=== PATIENT | male | born 1980 | race Caucasian/White ===

== ENCOUNTER 2023-10-29 15:55 | Outpatient (CLI) | payer OTHER, SELFPAY ==
[2023-11-01 13:34] LABS: Anti-Double Strand DNA AB <1 IU/mL; Jo-1 Antibody <1.0 NEG AI (<1.0 NEG); SS-B/LA IGG <1.0 NEG AI (<1.0 NEG); Scleroderma Ab(Scl-70) Ab <1.0 NEG AI (<1.0 NEG); Ss-A/Ro Igg <1.0 NEG AI (<1.0 NEG)
[2023-11-07 15:02] LABS: SM/RNP Antibodies <1.0 NEG
== END 2023-10-29 15:56 | disposition home or self-care (01) ==
LOC: LAB 15:58
PROVIDERS: PCP Nurse Practitioner Family; Visit Provider Nurse Practitioner Family
DX: K11.7 Disturbances of salivary secretion (principal)
CPT/HCPCS: 11104; 36415; 72141; 86225; 86235; 99204

== ENCOUNTER → 2023-12-03 11:19 | Outpatient (BNVA) | payer OTHER, SELFPAY | PROVIDERS: PCP Nurse Practitioner Family; Visit Provider Nurse Practitioner Family | DX: B35.3 Tinea pedis (principal); L57.8 Other skin changes due to chronic exposure to nonionizing radiation; L81.4 Other melanin hyperpigmentation; G62.9 Polyneuropathy, unspecified; M25.50 Pain in unspecified joint | CPT/HCPCS: 99214 ==

== ENCOUNTER → 2024-04-01 11:15 | Outpatient (BNVA) | payer OTHER, SELFPAY | PROVIDERS: PCP Nurse Practitioner Family; Visit Provider Nurse Practitioner Family | DX: B35.3 Tinea pedis (principal); L57.8 Other skin changes due to chronic exposure to nonionizing radiation; L81.4 Other melanin hyperpigmentation | CPT/HCPCS: 99213 ==

== ENCOUNTER → 2025-03-03 18:35 | Outpatient (BNVA) | payer MEDICAID, SELFPAY | PROVIDERS: PCP Nurse Practitioner Family; Visit Provider Emergency Medicine | DX: R06.02 Shortness of breath (principal) | CPT/HCPCS: 87426 ==

== ENCOUNTER 2025-03-07 18:03 | Inpatient (IN) | payer MEDICAID, SELFPAY ==
[2025-03-07 18:05] VITALS: BP 154/70; PULSE 124; RESP 16; TEMP 36.9; O2SAT 97; BMI 25.0
--- NOTE | 2025-03-07 18:21 | ECG_ITS ---
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 Measurements Intervals Elizabeth Rate: 122 P: 74 MS: 156 QRS: 75 QRSD: 98 T: 60 QT: 350 QTc: 499 Interpretive Statements SINUS TACHYCARDIA NONSPECIFIC T-WAVE ABNORMALITY No previous ECG available for comparison Electronically Signed On 03-08-2025 08:55:42 CDT by Morgan Carvalho M.D. [id number]
--- NOTE | 2025-03-07 18:33 | CTR_ITS ---
PROCEDURE INFORMATION: Exam: CTA Chest With Contrast Exam date and time: 03/07/2025 6:44 PM Age: 44 years old Clinical indication: Shortness of breath; C/O worsening SOB over the last week despite abx and steroid treatment. ; Additional info: Concern for pe TECHNIQUE: Imaging protocol: Computed tomographic angiography of the chest with contrast. Exam focused on the arteries. 3D rendering (Not supervised by radiologist): MIP and/or 3D reconstructed images were created by the technologist. Radiation optimization: All CT scans at this facility use at least one of these dose optimization techniques: automated exposure control; mA and/or kV adjustment per patient size (includes targeted exams where dose is matched to clinical indication); or iterative reconstruction. Contrast material: OMNI 350; Contrast volume: 100 ml; Contrast route: INTRAVENOUS (IV); COMPARISON: MR cervical spin wo con* [id number] 10/29/2023 1:18 PM RADIATION DOSE METRICS: Total DLP (mGy-cm): 422.18 FINDINGS: Pulmonary arteries: No evidence of pulmonary thromboembolism. Aorta: No evidence of aneurysmal dilatation or dissection of the thoracic aorta. Thyroid: Grossly unremarkable. Lungs: No focal consolidation. No evidence of pneumonia. Pleural spaces: No evidence of pleural effusion. No pneumothorax. Heart: No cardiomegaly. No pericardial effusion. Mediastinal space: No evidence of mediastinal mass, fluid collection or hematoma. Lymph nodes: No mediastinal or hilar adenopathy. Bones/joints: No evidence of acute fracture or aggressive osseous lesion. Soft tissues: No evidence of fluid collection or hematoma in the superficial soft tissues. Other findings: No evidence of acute abnormality in the upper abdomen. CT/CT angio chest PE protcl [id number] IMPRESSION: 1. No evidence of PE or acute aortic abnormality.
--- NOTE | 2025-03-07 18:33 | XRR_ITS ---
PROCEDURE INFORMATION: Exam: XR Chest Exam date and time: 03/07/2025 6:53 PM Age: 44 years old Clinical indication: Shortness of breath; Additional info: SOB TECHNIQUE: Imaging protocol: Radiologic exam of the chest. Views: 1 view. COMPARISON: CT angio chest PE protcl [id number] 03/07/2025 6:44 PM FINDINGS: Lungs: No focal consolidation. Pleural spaces: No evidence of pneumothorax. No evidence of pleural effusion. Heart/Mediastinum: Cardiomediastinal silhouette is within normal limits. Bones/joints: No evidence of acute osseous abnormality. XR/XR chest 1V portable [id number] IMPRESSION: 1. No acute cardiopulmonary abnormality.
--- NOTE | 2025-03-07 18:35 | ED_ITS ---
HPI - SOB/Dyspnea 2 General: Chief Complaint: Shortness of Breath/Dyspnea Stated Complaint: sob, shakes, dizy, confusion Time Seen by Provider: 03/07/25 18:14 History of Present Illness: HPI Narrative: Patient comes in with shortness of breath. 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 States that over the past couple of days he has had bodyaches, sore throat, fatigue. States that he thought he might have COVID. Was seen in urgent care 4 days ago and tested negative for COVID. States he started him on doxycycline, steroids, and albuterol which he has been using as prescribed with no change. Patient denies any medical history. States he does smoke but does not drink or do any drugs. Denies any history of asthma. He denies chest pain, but does state that a week or so ago he had a knot in his stomach that has gone away since then. Denies any heart history. He is tachycardic on physical exam. His oxygen saturations are 99% on room air. Will check labs, EKG, give IV fluids, check chest x-ray, check CTA chest to rule out PE, and reassess. Associated symptoms: Deny abdominal pain, chest pain, nausea or vomiting Related Data Previous Rx's ?Medication ?Instructions ?Recorded albuterol sulfate 90 mcg/actuation 2 puff inhalation Q 6H PRN 03/03/25 aerosol inhaler shortness of breath or wheez ing #8.5 grams dexamethasone 2 mg tablet 6 mg (3 x 2 mg) PO DAILY 5 d ays 03/03/25 #15 tabs doxycycline hyclate 100 mg tablet 100 mg PO BID 7 days #14 tabs 03/03/25 Allergies Allergy/AdvReac Type Severity Reaction Status Date / Time No Known Allergies Allergy Unverified 03/03/25 18:27 Review of Systems 2 Eyes: Denies: change in vision or blurry vision Card: Denies: chest pain Resp: Reports: dyspnea GI: Denies: abdominal pain, nausea or vomiting : Denies: flank pain or dysuria Musc: Denies: neck pain or back pain PFSH ED 2 PFSH: Social History Smoking and tobacco/nicotine status: never used tobacco/nicotine Physical Exam 2 Const: COMMON NORMALS: no acute distress, patient oriented x3, healthy appearing and alert HENMT: COMMON NORMALS: normocephalic and atraumatic HEAD & SCALP: n ormocephalic and atraumatic Neck/C-Spine: COMMON NORMALS: full ROM and supple Resp: COMMON NORMALS: normal respiratory effort, No retractions and No use of accessory muscles Cardio: OTHER: Tachycardia, normal rhythm GI: COMMON NORMALS: Normal to inspection, nondistended, normoactive bowel sounds present, Soft to palpation and non-tender PALPATION: Yes Soft to palpation Extremity: COMMON NORMALS: normal to inspection and full ROM Neuro: COMMON NORMALS: patient oriented x3 SENSORIUM/ORIENTATION: Yes alert Psych: COMMON NORMALS: mental status grossly normal and cooperative Course 2 Vital Signs: Vital signs: Vital Signs Temperature 98.5 F 03/07/25 18:05 Pulse Rate 102 H 03/07/25 19:07 Respiratory Rate 16 03/07/25 18:05 Blood Pressure 147/78 03/07/25 19:07 Pulse Oximetry 96 03/07/25 19:07 Oxygen Delivery Me thod Room Air 03/07/25 19:07 MDM - SOB/Dyspnea Medical Decision Making Patient's white blood cell count came back elevated at 17. I am concerned for sepsis. X 0 for sepsis would be 7:30 PM. Will start broad-spectrum antibiotics with vancomycin and Zosyn, and continue IV fluid resuscitation for a total of 30 cc/kg bolus. Reassessment I spoke with the hospitalist and the patient about the test results. I am concerned for sepsis. Will continue IV fluids and antibiotics. Will admit for further workup and treatment. Lab Data 03/07/25 18:50 03/07/25 18:50 Labs/Radiology: Radiology Impressions Chest CTA 03/07/25 18:33 IMPRESSION: 1. No evidence of PE or acute aortic abnormality. Chest X-Ray 03/07/25 18:33 IMPRESSION: 1. No acute cardiopulmonary abnormality. Laboratory Results WBC 17.35 10^3/uL (3.29-11.43) H 03/07/25 18:50 RBC 4.66 10^6/uL (3.85-5.65) 03/07/25 18:50 Hgb 14.40 g/dL (11.27-16.99) 03/07/25 18:50 Hct 43.3 % (37-53) 03/07/25 18:50 MCV 92.9 fl (82-101) 03/07/25 18:50 MCH 30.9 pg (27-33) 03/07/25 18:50 MCHC 33.3 g/dL (30-55) 03/07/25 18:50 RDW 12.6 % (12.1-15.1) 03/07/25 18:50 Plt Count 301 10^3/cmm (157-399) 03/07/25 18:50 MPV 8.7 fL (7.4-10.4) 03/07/25 18:50 Neut % (Auto) 88.6 % 03/07/25 18:50 Lymph % (Auto) 8.1 % 03/07/25 18:50 [place] % (Auto) 2.3 % 03/07/25 18:50 Eos % (Auto) 0.0 % 03/07/25 18:50 Baso % (Auto) 0.2 % 03/07/25 18:50 Neut # (Auto) 15.36 10^3/uL (1.8-7.7) H 03/07/25 18:50 Lymph # (Auto) 1.4 10^3/uL (0.8-4.8) 03/07/25 18:50 [place] # (Auto) 0.4 10^3/uL (0.2-0.9) 03/07/25 18:50 Eos # (Auto) 0.0 10^3/uL (0.0-0.8) 03/07/25 18:50 Baso # (Auto) 0.0 10^3/uL (0.0-0.1) 03/07/25 18:50 Nucleated RBC % (auto) 0 % 03/07/25 18:50 Nucleated RBCs # 0.0 /100WBC 03/07/25 18:50 Sodium 139 mmol/L (136-145) 03/07/25 18:50 Potassium 4.2 mmol/L (3.5-5.1) 03/07/25 18:50 Chloride 102 mmol/L (98-107) 03/07/25 18:50 Carbon Dioxide 23 mmol/L (22-29) 03/07/25 18:50 Anion Gap 18.2 (5-19) 03/07/25 18:50 BUN 8 mg/dL (6-20) 03/07/25 18:50 Creatinine 0.7 mg/dL (0.7-1.2) 03/07/25 18:50 GFR Calculation 123.1 mL/min (90-130) 03/07/25 18:50 Glucose 181 mg/dL (65-115) H 03/07/25 18:50 Calculated Osmolality 291 mOsm/kg (285-295) 03/07/25 18:50 Lactic Acid 3.0 mmol/L (0.5-2.2) H 03/07/25 18:50 Calcium 8.9 mg/dL (8.5-10.5) 03/07/25 18:50 Total Bilirubin 0.2 mg/dL (0.15-1.2) 03/07/25 18:50 AST 9 U/L (0-40) 03/07/25 18:50 ALT 11 U/L (0-41) 03/07/25 18:50 Alkaline Phosphatase 99 U/L (40-130) 03/07/25 18:50 Troponin T Baseline < 6 ng/L (0-15) 03/07/25 18:50 Troponin T 120 Minute < 6.0 ng/L (0-15) 03/07/25 12:47 NT-Pro-B Natriuret Pep < 36 pg/mL (0-125) 03/07/25 18:50 Total Protein 6.7 g/dL (6.6-8.7) 03/07/25 18:50 Albumin 4.6 g/dL (3.5-5.2) 03/07/25 18:50 Globulin 2.1 g/dL (1.3-4.6) 03/07/25 18:50 Lipase 39 U/L (13-60) 03/07/25 18:50 Amorphous Sediment Not Reportable 03/07/25 20:00 Monoscreen Negative (Negative) 03/07/25 19:44 Influenza A (PCR) Negative (Negative) 03/07/25 19:00 Influenza Type B (PCR) Negative (Negative) 03/07/25 19:00 RSV (PCR) Negative (Negative) 03/07/25 19:00 SARS-CoV-2 (PCR) Negative (Negative) 03/07/25 19:00 All radiology interpretation(s) finalized by discharge Critical Care Time 2 Critical Care Time: Critical Care Time: Yes Total Critical Care Time: 35 Attestation: This case had a high probability of a clinically significant, sudden, or life threatening deterioration of this patient's condition which required my full and direct attention, intervention and personal management. 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
[2025-03-07] MEDS: iohexol 350 mg/mL 500 mL Btl (per mL) IV (18:50)
[2025-03-07] MEDS: sodium chloride 0.9% 1,000 ML 999 ML IV ×3 (19:06→21:07)
[2025-03-07 19:07] VITALS: BP 147/78; PULSE 102; O2SAT 96
[2025-03-07 19:14] LABS: Basophils % 0.2 %; Hematocrit 43.3 % (37-53); Lymphocytes # 1.4 10^3/uL (0.8-4.8); Lymphocytes % 8.1 %; Mean Corpuscular HGB Conc 33.3 g/dL (30-55); Mean Corpuscular Hemoglobin 30.9 pg (27-33); Mean Corpuscular Volume 92.9 fl (82-101); Mean Platelet Volume 8.7 fL (7.4-10.4); Monocytes # 0.4 10^3/uL (0.2-0.9); Monocytes % 2.3 %; Neutrophils # 15.36 10^3/uL (1.8-7.7); Neutrophils % 88.6 %; Nucleated Red Blood Cells % 0 %; Platelet Count 301 10^3/cmm (157-399); Red Blood Count 4.66 10^6/uL (3.85-5.65); Red Cell Distribution Width 12.6 % (12.1-15.1); White Blood Count 17.35 10^3/uL (3.29-11.43)
[2025-03-07 19:36] LABS: Troponin(5th) Baseline < 6 ng/L (0-15)
[2025-03-07 19:46] LABS: Alanine Aminotransferase 11 U/L (0-41); Albumin Level 4.6 g/dL (3.5-5.2); Alkaline Phosphatase 99 U/L (40-130); Anion Gap 18.2 (5-19); Aspartate Amino Transferase 9 U/L (0-40); Blood Urea Nitrogen 8 mg/dL (6-20); Calcium 8.9 mg/dL (8.5-10.5); Carbon Dioxide 23 mmol/L (22-29); Chloride 102 mmol/L (98-107); Creatinine Clr Calc Pharmacy 167.4158; Globulin 2.1 g/dL (1.3-4.6); Glomerular Filtration Rate 123.1 mL/min (90-130); Glucose 181 mg/dL (65-115); Lipase 39 U/L (13-60); NT Pro B Type Natriuretic Pept < 36 pg/mL (0-125); Osmolality Calculated 291 mOsm/kg (285-295); Potassium 4.2 mmol/L (3.5-5.1); Sodium 139 mmol/L (136-145); Total Bilirubin 0.2 mg/dL (0.15-1.2); Total Protein 6.7 g/dL (6.6-8.7)
[2025-03-07 20:00] VITALS: BP 127/69; PULSE 86; RESP 17; O2SAT 94
[2025-03-07 20:01] LABS: Influenza A NEGATIVE (Negative); Influenza B NEGATIVE (Negative); Respiratory Syncytial Virus Ce NEGATIVE (Negative); SARS-CoV-2 PCR NEGATIVE (Negative)
[2025-03-07 20:03] LABS: Monoscreen Negative (Negative)
[2025-03-07] MEDS: piperacillin-tazobactam 3.375 GM in sodium chloride 0.9% (plus) 50 ML IV (20:07)
[2025-03-07] MEDS: SODIUM CHLORIDE 0.9% IV (20:34)
[2025-03-07] MEDS: VANCOMYCIN ADD VANTAGE IV (20:34)
[2025-03-07 20:52] LABS: Reflex Lactate Order REFLEX LACTIC ORDERD
[2025-03-07 21:00] VITALS: BP 132/75; PULSE 82; RESP 22; O2SAT 94
[2025-03-07 21:06] LABS: Bilirubin Urine Negative (Negative); Blood Urine Negative (Negative); Glucose Urine UA Negative (Normal); Ketones Urine Negative (Negative); Leukocyte Esterase Urine Negative (Negative); Nitrate Urine Negative (Negative); Protein Urine Negative (Negative); Urine Appearance Clear (CLEAR); Urine Color Yellow (Yellow); Urobilinogen Urine 0.2 mg/dL (Negative); pH Urine 5.5 (5-7)
[2025-03-07 21:08] LABS: Troponin 5 2HR < 6.0 ng/L (0-15)
[2025-03-07 21:11] LABS: Add Urine Microscopic? YES; Bacteria Urine None Seen /hpf; Hyaline Casts Urine 0-4 /lpf; RBC Urine 0-2 /hpf (0-2); Squamous Epithelial Cell Urine 0-5 /hpf (0-5); WBC Urine 0-5 /hpf (0-5)
[2025-03-07 21:18] LABS: Specific Gravity, Urine 1.064 (1.005-1.030)
[2025-03-07 21:55] LABS: Troponin 5 2HR Delta 0 ABS# (0-10)
--- NOTE | 2025-03-07 22:34 | PM.HP ---
Providers/Chief Complaint Admitting Physician: Sofia Li MD--- patient seen in [facility] midnight Primary Care Provider: ESTHER Nolna Chief Complaint: sob, shakes, dizzy, confusion, polyarthralgia, OWEN History of Present Illness Rayo Gayle is a 44 year old male with no significant medical history who presented with a history of having headaches rigors chills with arthralgias to the joints on Saturday being 4 days from today. Patient at that time went to urgent care and read the history given to the urgent care about tick related bites taken off from the skin by the , urgent care had written doxycycline give him some inhaler because he was also having shortness of breath with the rigors. Patient was not feeling any better for that reason patient came to the emergency room for further evaluation. This patient is presenting septic white count elevation though had a prior low-dose steroid 6 mg prednisone daily, he also mentioned headaches and arthritis to the joints and rigors and some confusion that with temporary or transitory. This had given suspicion of some disseminated process going on likely tick illness. Patient walks in the wound and does not get in touch with takes and a lot of time the will go through his skin to make sure there is none on his body. Prior to the illness the had taken off take off of him. Today in the emergency room white count was at 17,000 lactate was 3 patient was tachycardic at 130. Patient received dose of fluid and responded to heart rate coming down to 102. He was afebrile in the emergency room. He was given vancomycin and Zosyn in the emergency room. I was called to evaluate patient. I have seen and evaluated patient asked questions as per above as narrated. The [place] is headache arthralgias rigors and being feverish presenting septic with a high index of suspicion for a disseminated illness perhaps tick borne illness. Because of the dissemination I have initiated ceftriaxone high-dose still leave the Doxy till tick panel comes back. Must continue to treat and monitor. Will continue gentle hydration at this time. Patient meets inpatient criteria allowing at least 2 midnights stay. Review of Systems Narrative: System review open 10 organ review is significant for systemic illness with rigors leukocytosis tachycardia arthralgias and headaches significant for some form of microorganism dissemination otherwise unremarkable. Medications/Allergies Home Medications ?Medication ?Instructions ?Recorded ?Confirmed ?Last Taken ?Type albuterol sulfate 90 mcg/actuation 2 puff inhalation Q6H PRN 03/03/25 03/03/25 Unknown Rx aerosol inhaler shortness of breath or wheezing #8.5 grams dexamethasone 2 mg tablet 6 mg (3 x 2 mg) PO DAILY 5 days 03/03/25 03/03/25 Unknown Rx #15 tabs doxycycline hyclate 100 mg tablet 100 mg PO BID 7 days #14 tabs 03/03/25 03/03/25 Unknown Rx Allergies Allergy/AdvReac Type Severity Reaction Status Date / Time No Known Allergies Allergy Unverified 03/03/25 18:27 PFSH Acute PFSH: Social History Smoking and tobacco/nicotine status: never used tobacco/nicotine Vitals/I&O/Wt Last Vital Signs Temp 98.5 F 03/07/25 18:05 Pulse 102 H 03/07/25 19:07 Resp 16 03/07/25 18:05 BP 147/78 03/07/25 19:07 Pulse Ox 96 03/07/25 19:07 O2 Del Method Room Air 03/07/25 19:07 03/07/25 03/07/25 03/07/25 06:59 14:59 22:59 Intake Total 1998 Balance 1998 Weight last 48 hrs Weight 90.718 kg Physical Exam Narrative: Generally patient eats doing fairly well slightly improved than at presentation. Patient felt that getting the fluid help. HEENT normocephalic/atraumatic neck neck is supple cardiovascular heart rate is regular lungs are pretty much clear abdomen soft nontender nondistended unremarkable extremities intact no edema has good pulses neurology he has no focality lab studies lab studies reviewed and noted. Data 03/08/25 03:35 03/08/25 03:35 Micro: Microbiology 03/07/25 19:07 Blood Culture - Preliminary Blood SPECIMEN COLLECTED 03/07/25 19:00 Blood Culture - Preliminary Blood SPECIMEN COLLECTED A&P Assessment and plan (1) Sepsis: - Patient was septic presenting with - Leukocytosis - Increase respiratory rate - Increased pulse rate in the 130s, responded to fluid - Much better with antibiotics initiated - Patient received vancomycin and Zosyn in the emergency room I did not continue with that we will further follow-up with doxycycline and ceftriaxone. (2) At high risk for tick borne illness: Continue gentle hydration, Continue antibiotics with ceftriaxone Continue with doxycycline at the moment till panel comes out. Ceftriaxone is good for the disseminated tick illness (3) Arthralgia of ankle or foot, left: Arthralgia a very high index of suspicion for a disseminated takes disease Continue ceftriaxone and have doxycycline also on board till the results of the tick panel comes out Did not order a leak here because patient LFTs are all entirely normal. (4) Generalized headaches: Generalized headache again parts of the multi symptoms of disseminated tick illness Continue to treat mainstay is ceftriaxone we will continue with doxycycline till result comes out for the tick panel (5) Rigors: - Rigors due to disseminated spirochetes - Continue ceftriaxone high-dose as ordered - Will continue to treat and optimize (6) Shortness of breath: Shortness of breath with rigors - Patient had no pulmonary processes, chest x-ray and CT of the chest with unremarkable for any pneumonia and PE - Continue nebulizing treatments at this time. - Empiric antibiotics with doxycycline along with ceftriaxone for disseminated tick related borne illness while pending tick panel. (7) Cough: - Cough is mild as part of multi organ infection TICK related illness - Nebulizing treatments Plan GI and DVT prophylaxis in place PDMP PDMP Reviewed: Last Reviewed 03/08/25 06:31 by Sofia Li MD Attestations Medical Necessity Statement*: Patient meets inpatient criteria for what looks like disseminated tick borne illness and will be needing a minimum of 2 midnights Coding Level of Care Code 08285 Diagnoses Sepsis A41.9 At high risk for tick borne illness Z91.89 Arthralgia of ankle or foot, left M25.572 Generalized headaches R51.9 Rigors R68.89 Shortness of breath R06.02 Cough R05.9 Time Spent (min) 60
[2025-03-07 23:00] VITALS: BP 132/69; PULSE 80; RESP 14; TEMP 36.7; O2SAT 93
[2025-03-07 23:36] VITALS: PULSE 91; RESP 18; O2SAT 94
[2025-03-07] MEDS: cefTRIAXone 2,000 mg SDV 2000 MG IVP (23:44)
[2025-03-07] MEDS: sodium chloride 0.9% 1,000 ML 75 ML IV (23:45)
[2025-03-07] MEDS: nicotine 21 mg Patch 1 PATCH TRANSDERMA (23:47)
[2025-03-07] MEDS: doxycycline 100 MG in sodium chloride 0.9% (plus) 100 ML IV (23:55)
[2025-03-08] VITALS (12 sets, daily range): BP systolic 115–146; BP diastolic 61–92; PULSE 59–94; RESP 14–22; TEMP 36.6–37.1; O2SAT 93–98
[2025-03-08 00:01] LABS: Lactic Acid level (Lactate) 1.3 mmol/L (0.5-2.2)
--- NOTE | 2025-03-08 03:42 | PC.NURSE ---
pt awoken via verbal stimuli and morning labs drawn. pt denies question/concerns at this time. pt in no obivous distress. pt resting comfortably listening to music . pt on configuration specialist. VSS>
[2025-03-08 03:43] LABS: Basophils % 0.2 %; Lymphocytes # 2.6 10^3/uL (0.8-4.8); Lymphocytes % 17.8 %; Mean Corpuscular HGB Conc 32.6 g/dL (30-55); Mean Corpuscular Volume 95.1 fl (82-101); Mean Platelet Volume 8.5 fL (7.4-10.4); Monocytes # 1.2 10^3/uL (0.2-0.9); Monocytes % 7.8 %; Neutrophils # 10.77 10^3/uL (1.8-7.7); Neutrophils % 73.5 %; Nucleated Red Blood Cells % 0 %; Platelet Count 234 10^3/cmm (157-399); Red Cell Distribution Width 12.6 % (12.1-15.1); White Blood Count 14.66 10^3/uL (3.29-11.43)
[2025-03-08 04:04] LABS: Alanine Aminotransferase 8 U/L (0-41); Albumin Level 3.6 g/dL (3.5-5.2); Alkaline Phosphatase 86 U/L (40-130); Anion Gap 13.2 (5-19); Aspartate Amino Transferase 7 U/L (0-40); Blood Urea Nitrogen 7 mg/dL (6-20); Calcium 8.2 mg/dL (8.5-10.5); Carbon Dioxide 23 mmol/L (22-29); Chloride 105 mmol/L (98-107); Creatinine Clr Calc Pharmacy 195.3185; Globulin 1.9 g/dL (1.3-4.6); Glucose 99 mg/dL (65-115); Lactic Sepsis W/Reflex 1.1 mmol/L (0.5-2.2); Magnesium 1.7 mg/dL (1.7-2.3); Osmolality Calculated 282 mOsm/kg (285-295); Phosphorus 4.4 mg/dL (2.5-4.5); Potassium 4.2 mmol/L (3.5-5.1); Sodium 137 mmol/L (136-145); Total Bilirubin 0.2 mg/dL (0.15-1.2); Total Protein 5.5 g/dL (6.6-8.7)
[2025-03-08 04:11] LABS: Procalcitonin 0.03 ng/mL (0-0.5)
--- NOTE | 2025-03-08 06:09 | PC.NURSE ---
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 answered said call light and patient requesting to use restroom. pts urinal emptied approx 1300 clear, yellow urine and new urinal given to patient. pt denies further questions/concerns at this time.
[2025-03-08] MEDS: pantoprazole DR 40 mg Tablet PO (09:06)
[2025-03-08] MEDS: enoxaparin 40 mg/0.4 mL Syringe SUBCUT (09:06)
--- NOTE | 2025-03-08 09:15 | PC.CHAP ---
Pastoral Care Encounter/Spiritual Assessment Type of Contact [] Declined in home tutor visit [] Patient/Family/Request visit [] Outpatient visit [] Follow-up visit [] Physician referral [] Code/Alert [x] Routine visit [] Staff referral [] Actively dying [] Patient sleeping [] Family support [] [] Out of room [] Palliative care [] [] Receiving care in room [] Pre-surgical visit [] Trauma [] Long length of stay [] ICU visit [] Other: Relational/Emotional Strength [] Patient feels connected with others/family/visitors/staff [] Distress [] Loneliness/isolation [] Abandonment Spirituality of Patient [x] Person of Debbi [] Attends Presybeterian of their Debbi [x] Believes in Prayer [] Reads Bible or Evangelical materials [] There are Spiritual issues to be addressed 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 Interventions [x] Prayer [x] Active listening [] Non-anxious presence [] Spiritual/emotional support [] Crisis/trauma care [] Spiritual counseling [] Bereavement support [] Provided bereavement packet [x] Provided Bible/devotional materials [] Provided toy/stuffed animal, coloring book to patient or family member [] Provided Communion [] Anointing/[place] [] Salvation [x] Completed spiritual assessment [] Other: Impact on Illness or Injury [] Angry [] Fearful [] Anxious [] Often cries [] Exhaustion [] Unable to work [] Unable to attend episcopal [] Unable to walk/stand [] Unable to read [] Unable to drive [] Unable to eat/drink [] Unable to sleep [] Unable to be with family [] Patient intubated [] Other: Summary Time spent with patient 10 min
[2025-03-08] MEDS: doxycycline 100 MG in sodium chloride 0.9% (plus) 100 ML IV (11:58)
[2025-03-08] MEDS: cefTRIAXone 2,000 mg SDV 2000 MG IVP ×2 (11:59→23:39)
--- NOTE | 2025-03-08 14:03 | P.PN_ITS ---
Subjective 2 Subjective: Last Saturday patient suffered chills shakes shortness of breath like breathing fever cough. Patient was seen in urgent care placed on doxycycline because of reported tick bites. He did not get any better and was having further shaking episodes as well as some confusion of concern. He was found to have elevated white blood cell count and placed on broad-spectrum antibiotics. Workup for infection is negative. Blood cultures pending Patient states he feels much better today is with him and also agrees that he is doing much better Vitals/I&O/Wt Last Vital Signs Temp 98.0 F 03/08/25 11:15 Pulse 91 03/08/25 11:15 Resp 16 03/08/25 11:15 BP 122/82 03/08/25 11:15 Pulse Ox 97 03/08/25 11:15 O2 Del Method Room Air 03/08/25 11:15 03/07/25 03/08/25 03/08/25 22:59 06:59 14:59 Intake Total 3499 / 3499 150 / 3649 240 / 240 Output Total 1300 / 1300 Balance 3499 / 3499 -1150 / 2349 240 / 240 Weight last 48 hrs Weight 90.718 kg Physical Exam 2 Narrative: Patient is alert and oriented to person place time and situation not confused Heart regular normal S1-S2 without murmurs clicks gallops or rubs Lungs clear to auscultation slightly diminished but clear Abdomen soft nontender nondistended positive bowel sounds no hepatosplenomegaly Extremities no clubbing cyanosis or edema Data 03/08/25 03:35 03/08/25 03:35 Micro: Microbiology 03/07/25 19:07 Blood Culture - Preliminary Blood SPECIMEN COLLECTED 03/07/25 19:00 Blood Culture - Preliminary Blood SPECIMEN COLLECTED A&P Assessment and plan (1) Sepsis: - Patient was septic presenting with - Leukocytosis - Increase respiratory rate - Increased pulse rate in the 130s, responded to fluid - Much better with antibiotics initiated - Patient received vancomycin and Zosyn in the emergency room overnight physician continue doxycycline and added ceftriaxone instead (2) At high risk for tick borne illness: Continue gentle hydration, Continue antibiotics with ceftriaxone Continue with doxycycline at the moment till panel comes out. Ceftriaxone is good for the disseminated tick illness per admitting physician (3) Arthralgia of ankle or foot, left: Arthralgia a very high index of suspicion for a disseminated tick disease Continue ceftriaxone and have doxycycline also on board till the results of the tick panel comes out No complaint of arthralgia to me today (4) Generalized headaches: Generalized headache again parts of the multi symptoms of disseminated tick illness Continue to treat mainstay is ceftriaxone we will continue with doxycycline till result comes out for the tick panel (5) Rigors: - Continue ceftriaxone high-dose as ordered - Will continue to treat and optimize (6) Shortness of breath: Shortness of breath with rigors - Patient had no pulmonary processes, chest x-ray and CT of the chest with unremarkable for any pneumonia and PE - Continue nebulizing treatments at this time. - Empiric antibiotics with doxycycline along with ceftriaxone for disseminated tick related borne illness while pending tick panel. (7) Cough: - Cough is mild as part of multi organ infection TICK related illness - Nebulizing treatments Plan GI and DVT prophylaxis in place Await blood cultures and follow-up CBC tomorrow PDMP PDMP Reviewed: Not Reviewed Attestations 2 Medical Necessity Statement*: Patient meets inpatient criteria for what looks like disseminated tick borne illness and will be needing a minimum of 2 midnights Coding Level of Care Code Acute Code for Chg Fwd Diagnoses Sepsis without acute organ dysfunction, due to unspecified organism A41.9 Sepsis type: sepsis due to unspecified organism Sepsis acute organ dysfunction status: without acute organ dysfunction At high risk for tick borne illness Z91.89 Arthralgia of ankle or foot, left M25.572 Generalized headaches R51.9 Rigors R68.89 Shortness of breath R06.02 Cough R05.9
[2025-03-08] MEDS: doxycycline 100 mg Tablet PO (17:57)
[2025-03-08] MEDS: sodium chloride 0.9% 1,000 ML 75 ML IV (17:58)
[2025-03-08] MEDS: acetaminophen 325 mg Tablet 650 MG PO (22:18)
[2025-03-09] VITALS: BP 127/80; PULSE 75; RESP 17; TEMP 36.7; O2SAT 96
[2025-03-09] MEDS: nicotine 21 mg Patch 1 PATCH TRANSDERMA
[2025-03-09 05:22] LABS: Basophils # 0.1 10^3/uL (0.0-0.1); Basophils % 0.7 %; Eosinophils # 0.1 10^3/uL (0.0-0.8); Eosinophils % 1.2 %; Hematocrit 40.1 % (37-53); Lymphocytes # 4.6 10^3/uL (0.8-4.8); Lymphocytes % 41.8 %; Mean Corpuscular HGB Conc 33.2 g/dL (30-55); Mean Corpuscular Hemoglobin 30.8 pg (27-33); Mean Corpuscular Volume 92.8 fl (82-101); Mean Platelet Volume 8.3 fL (7.4-10.4); Monocytes # 0.9 10^3/uL (0.2-0.9); Monocytes % 8.4 %; Neutrophils # 5.21 10^3/uL (1.8-7.7); Neutrophils % 47.5 %; Nucleated Red Blood Cells % 0 %; Platelet Count 228 10^3/cmm (157-399); Red Blood Count 4.32 10^6/uL (3.85-5.65); Red Cell Distribution Width 12.6 % (12.1-15.1); White Blood Count 10.96 10^3/uL (3.29-11.43)
[2025-03-09 05:42] LABS: Anion Gap 15.1 (5-19); Blood Urea Nitrogen 10 mg/dL (6-20); Calcium 8.4 mg/dL (8.5-10.5); Carbon Dioxide 24 mmol/L (22-29); Chloride 108 mmol/L (98-107); Creatinine Clr Calc Pharmacy 167.4158; Glomerular Filtration Rate 123.1 mL/min (90-130); Glucose 84 mg/dL (65-115); Osmolality Calculated 294 mOsm/kg (285-295); Potassium 4.1 mmol/L (3.5-5.1); Sodium 143 mmol/L (136-145)
[2025-03-09 07:50] VITALS: BP 109/62; PULSE 99; RESP 15; TEMP 37.3; O2SAT 96
[2025-03-09] MEDS: enoxaparin 40 mg/0.4 mL Syringe SUBCUT (08:03)
[2025-03-09] MEDS: doxycycline 100 mg Tablet PO (08:03)
[2025-03-09 09:35] VITALS: PULSE 74; RESP 18; O2SAT 97
[2025-03-09 11:40] VITALS: BP 146/81; PULSE 103; RESP 15; TEMP 36.8; O2SAT 97
[2025-03-09] MEDS: cefTRIAXone 2,000 mg SDV 2000 MG IVP (11:40)
--- NOTE | 2025-03-09 11:58 | PM.DCS ---
Discharge Providers Date of Admission: 03/07/25 21:13 Date of Discharge: March 09, 2025 Attending Provider at Admission: Sofia Li MD Attending Provider at Discharge: Reynold Smalls DO Consults: None Primary Care Provider: ESTHER Nolan Diagnoses at Discharge Discharge Diagnosis (1) Sepsis: Status: Acute Qualifiers: Sepsis acute organ dysfunction status: without acute organ dysfunction Sepsis type: sepsis due to unspecified organism Qualified Code(s): A41.9 - Sepsis, unspecified organism (2) At high risk for tick borne illness: Status: Acute (3) Arthralgia of ankle or foot, left: Status: Acute (4) Generalized headaches: Status: Acute (5) Rigors: Status: Acute (6) Shortness of breath: Status: Acute (7) Cough: Status: Acute Reason for Visit Reason for Visit: sob, shakes, dizzy, confusion, polyarthralgia, OWEN Brief History: Patient had been treated for 5 days for tick borne illness with doxycycline. However he continued to worsen. He had shakes and confusion and shortness of breath that prompted his admission through the ER. He did have an elevated white count and the lactate was 3. He was tachycardic and had an elevated respiratory rate. He appeared to be in sepsis Hospital Course Hospital Course Patient was admitted for sepsis placed on high-dose ceftriaxone and continued with the doxycycline. He had no further fevers his symptoms resolved within 24 hours. He was held overnight to wait for cultures blood cultures were negative. His white count has returned to normal and he is asymptomatic. He will be discharged on Omnicef for 7-day course and to continue Doxy until gone Physical Exam Narrative: Patient is alert and oriented to person place time and situation not confused Heart regular normal S1-S2 without murmurs clicks gallops or rubs Lungs clear to auscultation slightly diminished but clear Abdomen soft nontender nondistended positive bowel sounds no hepatosplenomegaly Extremities no clubbing cyanosis or edema Discharge Data Studies Completed and Pending Completed Studies During Hospitalization Category Date Time Status CT angio chest PE protcl [id number] Stat Cat Scan 03/07/25 18:33 Completed XR chest 1V portable [id number] Stat Exams 03/07/25 18:33 Completed Pending at discharge Category Date Time Status Blood Culture Stat Lab 03/07/25 19:07 Results Tick Panel Stat Lab 03/07/25 20:00 Received Radiology Impressions Chest CTA 03/07/25 18:33 IMPRESSION: 1. No evidence of PE or acute aortic abnormality. Chest X-Ray 03/07/25 18:33 IMPRESSION: 1. No acute cardiopulmonary abnormality. Laboratory Results WBC 10.96 10^3/uL (3.29-11.43) 03/09/25 05:09 RBC 4.32 10^6/uL (3.85-5.65) 03/09/25 05:09 Hgb 13.30 g/dL (11.27-16.99) 03/09/25 05:09 Hct 40.1 % (37-53) 03/09/25 05:09 MCV 92.8 fl (82-101) 03/09/25 05:09 MCH 30.8 pg (27-33) 03/09/25 05:09 MCHC 33.2 g/dL (30-55) 03/09/25 05:09 RDW 12.6 % (12.1-15.1) 03/09/25 05:09 Plt Count 228 10^3/cmm (157-399) 03/09/25 05:09 MPV 8.3 fL (7.4-10.4) 03/09/25 05:09 Neut % (Auto) 47.5 % 03/09/25 05:09 Lymph % (Auto) 41.8 % 03/09/25 05:09 [place] % (Auto) 8.4 % 03/09/25 05:09 Eos % (Auto) 1.2 % 03/09/25 05:09 Baso % (Auto) 0.7 % 03/09/25 05:09 Neut # (Auto) 5.21 10^3/uL (1.8-7.7) 03/09/25 05:09 Lymph # (Auto) 4.6 10^3/uL (0.8-4.8) 03/09/25 05:09 [place] # (Auto) 0.9 10^3/uL (0.2-0.9) 03/09/25 05:09 Eos # (Auto) 0.1 10^3/uL (0.0-0.8) 03/09/25 05:09 Baso # (Auto) 0.1 10^3/uL (0.0-0.1) 03/09/25 05:09 Nucleated RBC % (auto) 0 % 03/09/25 05:09 Nucleated RBCs # 0.0 /100WBC 03/09/25 05:09 Sodium 143 mmol/L (136-145) 03/09/25 05:09 Potassium 4.1 mmol/L (3.5-5.1) 03/09/25 05:09 Chloride 108 mmol/L (98-107) H 03/09/25 05:09 Carbon Dioxide 24 mmol/L (22-29) 03/09/25 05:09 Anion Gap 15.1 (5-19) 03/09/25 05:09 BUN 10 mg/dL (6-20) 03/09/25 05:09 Creatinine 0.7 mg/dL (0.7-1.2) 03/09/25 05:09 GFR Calculation 123.1 mL/min (90-130) 03/09/25 05:09 Glucose 84 mg/dL (65-115) 03/09/25 05:09 Calculated Osmolality 294 mOsm/kg (285-295) 03/09/25 05:09 Lactic Acid 1.1 mmol/L (0.5-2.2) 03/08/25 03:35 Lactic Acid (Sepsis) 1.3 mmol/L (0.5-2.2) 03/07/25 23:40 Calcium 8.4 mg/dL (8.5-10.5) L 03/09/25 05:09 Phosphorus 4.4 mg/dL (2.5-4.5) 03/08/25 03:35 Magnesium 1.7 mg/dL (1.7-2.3) 03/08/25 03:35 Total Bilirubin 0.2 mg/dL (0.15-1.2) 03/08/25 03:35 AST 7 U/L (0-40) 03/08/25 03:35 ALT 8 U/L (0-41) 03/08/25 03:35 Alkaline Phosphatase 86 U/L (40-130) 03/08/25 03:35 Troponin T Baseline < 6 ng/L (0-15) 03/07/25 18:50 Troponin T 120 Minute < 6.0 ng/L (0-15) 03/07/25 12:47 Delta Troponin T 0 ABS# (0-10) 03/07/25 12:47 NT-Pro-B Natriuret Pep < 36 pg/mL (0-125) 03/07/25 18:50 Total Protein 5.5 g/dL (6.6-8.7) L 03/08/25 03:35 Albumin 3.6 g/dL (3.5-5.2) 03/08/25 03:35 Globulin 1.9 g/dL (1.3-4.6) 03/08/25 03:35 Lipase 39 U/L (13-60) 03/07/25 18:50 Procalcitonin 0.03 ng/mL (0-0.5) 03/08/25 03:35 Urine Color Yellow (Yellow) 03/07/25 20:00 Urine Appearance Clear (CLEAR) 03/07/25 20:00 Urine pH 5.5 (5-7) 03/07/25 20:00 Ur Specific Adams 1.064 (1.005-1.030) H 03/07/25 20:00 Urine Protein Negative (Negative) 03/07/25 20:00 Urine Glucose (UA) Negative (Normal) 03/07/25 20:00 Urine Ketones Negative (Negative) 03/07/25 20:00 Urine Blood Negative (Negative) 03/07/25 20:00 Urine Nitrate Negative (Negative) 03/07/25 20:00 Urine Bilirubin Negative (Negative) 03/07/25 20:00 Urine Urobilinogen 0.2 mg/dL (Negative) 03/07/25 20:00 Ur Leukocyte Esterase Negative (Negative) 03/07/25 20:00 Urine RBC 0-2 /hpf (0-2) 03/07/25 20:00 Urine WBC 0-5 /hpf (0-5) 03/07/25 20:00 Ur Squamous Epith Cells 0-5 /hpf (0-5) 03/07/25 20:00 Amorphous Sediment Not Reportable 03/07/25 20:00 Urine Bacteria None seen /hpf (NONE) 03/07/25 20:00 Hyaline Casts 0-4 /lpf H 03/07/25 20:00 Monoscreen Negative (Negative) 03/07/25 19:44 Influenza A (PCR) Negative (Negative) 03/07/25 19:00 Influenza Type B (PCR) Negative (Negative) 03/07/25 19:00 RSV (PCR) Negative (Negative) 03/07/25 19:00 SARS-CoV-2 (PCR) Negative (Negative) 03/07/25 19:00 Vitals Last Vital Signs Temp 98.2 F 03/09/25 11:40 Pulse 103 H 03/09/25 11:40 Resp 15 03/09/25 11:40 BP 146/81 03/09/25 11:40 Pulse Ox 97 03/09/25 11:40 O2 Del Method Room Air 03/09/25 11:40 Discharge Plan Discharge Patient Disposition: Home Condition: Stable Prescriptions: New cefdinir 300 mg capsule 300 mg PO BID Qty: 14 0RF Rx Instructions: start morning of 03/10/25 Continued albuterol sulfate 90 mcg/actuation HFA aerosol inhaler 2 puff inhalation Q6H PRN (Reason: shortness of breath or wheezing) Qty: 8.5 0RF doxycycline hyclate 100 mg tablet 100 mg PO BID 7 Days Qty: 14 0RF cyclobenzaprine 10 mg tablet 10 mg PO DAILY ibuprofen [Advil] 200 mg Tablet 800 mg PO Q6H PRN (Reason: Fever Or Pain) oxycodone 10 mg tablet 10 mg PO Q6H PRN (Reason: Pain) Discontinued dexamethasone 2 mg tablet 6 mg PO DAILY 5 Days Qty: 15 0RF Discharge Orders: Discharge Order (Routine); Ordered 03/09/25 Ordered By: Reynold Smalls Referrals: Julianne Adan FNP-C [Primary Care Provider, Dermatology] Discharge Diet: Advance as tolerated Discharge Activity: Increase activity as tolerated and Return to work/school after cleared by PCP/Specialist Discharge Attestations Time Spent in Discharge Care*: less than 30 min Quality Metrics Clinical Quality Measures [ No reported AMI, CVA or VTE this stay] Coding Level of Care Code Acute Code for [facility] Fwd Diagnoses Sepsis without acute organ dysfunction, due to unspecified organism A41.9 Sepsis acute organ dysfunction status: without acute organ dysfunction Sepsis type: sepsis due to unspecified organism At high risk for tick borne illness Z91.89 Arthralgia of ankle or foot, left M25.572 Generalized headaches R51.9 Rigors R68.89 Shortness of breath R06.02 Cough R05.9
[2025-03-09 14:11] VITALS: BP 146/81; PULSE 103; RESP 15; O2SAT 97
[2025-03-09 16:10] LABS: Lyme AB Screen <0.90 index
[2025-03-11 19:15] LABS: RMSF IGG NOT DETECTED; RMSF IGM NOT DETECTED
[2025-03-12 20:50] LABS: E. Chaffeensis AB IGG <1:64; E. Chaffeensis AB IGM <1:20
== END 2025-03-09 14:00 | disposition home or self-care (01) | DRG 872 ==
LOC: ER 21:14 → ER IP 21:55 → MEDSURG 03-08 06:46
PROVIDERS: Admitting Provider Internal Medicine; Emergency Provider Emergency Medicine; PCP Nurse Practitioner Family; Visit Provider Internal Medicine
DX: A41.9 Sepsis, unspecified organism (principal); A77.49 Other ehrlichiosis; M25.572 Pain in left ankle and joints of left foot; R00.0 Tachycardia, unspecified; F17.210 Nicotine dependence, cigarettes, uncomplicated; Z79.891 Long term (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 of opiate analgesic
CPT/HCPCS: 36415; 71045; 71275; 80048; 80053; 81001; 83605; 83690; 83735; 83880; 84100; 84145; 84484; 85025; 86308; 86618; 86666; 86757; 87040; 87150; 87205; 87637; 93005; 96365; 96366; 96367; 96372; 96375; 99285; J0696; J1650; J2543; J3370; J3490; J7030; J7040; J9999

== ENCOUNTER → 2025-03-18 16:11 | Outpatient (BNVA) | payer MEDICAID, SELFPAY | DX: Z76.89 Persons encountering health services in other specified circumstances (principal) | CPT/HCPCS: 80053; 80061; 83036; 84439; 84443; 84481; 85025; G0103 ==

== ENCOUNTER 2025-08-02 14:09 | Emergency (ER) | payer OTHER, SELFPAY ==
--- OUTSIDE RECORDS SUMMARY | 2025-01-05 06:30 | XMS_ITS ---
Author Organization [facility] Address [address] [place] [address] Support Name Relationship Address , Shavonevon Gayle Emergency Contact [address] [place] [address] Rayo Gayle Guarantor Unknown [phone] Care Team Providers Care Vp Scientific Name Role Phone Cary MACKENZIE, Radha Primary Care Provider Unav demar Noni Ghotra Unavailable [phone] Saran Atkins Unavailable [phone] REASON FOR VISIT IRVIN C7-T1, [id number] Encounters Encounter Location Date Provider Diagnosis [facility] [address] [place] [address] 01/05/2025 Saran Atkins Plan Of Treatment Next Appt Details Provider Name:Saran Atkins, 08/19/2025 04:00:00 PM, [address], [place], [address], Progress Notes * Rayo GAYLEOB:1980 (45 yo M)Acc No.[id number]:01/05/2025 Patient: Rayo Silva Provider: Mercedez Atkins D.O. :1980 A ge:44 Y S ex:Male Date:01/05/2025 Address: [id number] Pcp:Radha Townsend MD Subjective: * Chief Complaints: * C CAROL C7-T1, [id number] * Electronic signature of Saran Atkins DO on 08/02/2025 at 02:21 PM TRANSLATIONAL SPECIALIST Sign off status: Pending * Provider: Mercedez Atkins D.O. Date: 0 01/05/2025 Generated for Delfina cardona/Kyrie/Antonio on: 1 10/02/2024 02:21 PM TRANSLATIONAL SPECIALIST
--- NOTE | 2025-08-02 14:10 | XR_ITS ---
WS: [id number] Portable AP upright chest, 08/02/2025 Clinical Data: chest pain Comparison: Portable chest, 03/07/2025 Findings: No nodules, masses or effusions are seen. The heart is normal. The pulmonary vascularity is not increased. No pneumonia or pneumothorax is seen. The diaphragms are flattened. XR/XR chest 1V portable [id number] Impression: Hyperinflation.
--- NOTE | 2025-08-02 14:11 | ECG_ITS ---
[facility] Date: 2025-08-02 Pat Name: Rayo Gayle Department: Room: Gender: Male Urban Designer: : 1980 Requested By: Martha Redmond Order Number: [id number] Mchugh MD: Desire Perez M.D. Measurements Intervals [place] Rate: 92 P: 74 WI: 155 QRS: 74 QRSD: 94 T: 69 QT: 346 QTc: 429 Interpretive Statements SINUS RHYTHM NONSPECIFIC T-WAVE ABNORMALITY Compared to ECG 03/07/2025 18:21:55 Sinus tachycardia no longer present T-wave abnormality still present Electronically Signed On 08-03-2025 22:05:59 LOADER OPERATOR by Desire Perez M.D. [email or web address]
[2025-08-02 14:12] VITALS: BP 143/84; PULSE 103; TEMP 36.8; O2SAT 98; BMI 27.0
--- OUTSIDE RECORDS SUMMARY | 2025-08-02 14:21 | XMS_ITS | Encounter Summary ---
Author Organization [facility] Address 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 Gender Identity Not on file Sexual Orientation Not on file documented as of this encounter Plan of Treatment Upcoming Encounters Date Type Department Care Team (Late st Contact Info) Description 08/18/2025 3:00 PM DESK SERGEANT Office Visit [facility] Gastroenterology- [place] [address] [address] Dayron Ceballos MD [address] [address] documented as of this encounter Visit Diagnoses Not on filedocumented in this encounter Care Teams Automatic Coin Machine Mechanic Relationship Specialty Start Date End Date Ana Avila DO [address] [place] [phone] PCP - General Family Practice 10/09/24 documented as of this encounter
--- OUTSIDE RECORDS SUMMARY | 2025-08-02 14:21 | XMS_ITS | Encounter Summary ---
Author Organization [facility] Address 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 Gender Identity Not on file Sexual Orientation Not on file documented as of this encounter Plan of Treatment Upcoming Encounters Date Type Department Care Team (Late st Contact Info) Description 08/18/2025 3:00 PM OIL FIELD TESTER Office Visit [facility] Gastroenterology- [place] [address] [address] Dayron Ceballos MD [address] [address] documented as of this encounter Visit Diagnoses Not on filedocumented in this encounter Care Teams Motorized Squad Captain Relationship Specialty Start Date End Date Ana Avila DO [address] [place] [phone] PCP - General Family Practice 10/09/24 documented as of this encounter
--- OUTSIDE RECORDS SUMMARY | 2025-08-02 14:22 | XMS_ITS | Clinical Summary ---
Author Organization [facility] Address [address] [place] [address] Phone Care Team Providers Care Chemical Processing Supervisor Name Role Phone Ana Avila Amy PAULINO Primary Care Provider [phone] Allergies Active Allergy Reactions Criticality Noted Date Comments Alpha-Gal (Qxhqgiszl-Dmauy-7,3-Galacto se) Other (See Comments) 10/09/2024 Joint pain Medications cyclobenzaprine (FLEXERIL) 10 mg tablet Take 1 Tablet by mouth daily. 4 Active oxyCODONE (ROXICODONE) 10 mg tablet Take 10 mg by mouth every 6 hours. 4 Active ibuprofen (MOTRIN) 200 mg tablet Take 200 mg by mouth every 6 hours as needed for Pain, Mild. Active pantoprazole (PROTONIX) 40 mg Tablet, Delayed Release (E.C.)Indication s:Gastroesophage al reflux disease without esophagitis Take 1 Tablet (40 mg) by mouth 2 times daily. 60 Tablet 11 5 Active fluticasone propion-salmeter oL (Advair HFA) 115-21 mcg/actuation HFA Aerosol Inhaler Take 2 Puffs by inhalation every 12 hours. 12 Gram 7 5 Active albuterol (PROVENTIL,JANIA KATE) 2.5 mg /3 mL (0.083 %) Solution for Nebulization Take 3 mL (2.5 mg) by inhalation every 4 hours as needed for Shortness of Breath. 100 mL 3 5 07/26/20 25 Active Problems Problem Noted Date Diagnosed Date Overweight (BMI 25.0-29.9) 06/26/2025 Panlobular emphysema 06/26/2025 Small airways disease 04/19/2025 Shortness of breath 04/19/2025 Mixed hyperlipidemia 11/06/2024 Inflammatory arthritis 10/09/2024 Chronic midline low back pain without sciatica 0 10/09/2024 Allergic reaction to alpha-gal 10/09/2024 Encounters Date Type Department Care Team Description 07/28/2025 External Device Data ST[facility] ABSTRACTION Provider, Abstract 07/28/2025 External Device Data ST[facility] ABSTRACTION Provider, Abstract 07/07/2025 Telephone [facility] [address] [facility] [place] [address] Ori Soto FNP [facility] RFS 07/06/2025 External Device Data ST[facility] ABSTRACTION Provider, Abstract 06/29/2025 External Device Data ST[facility] ABSTRACTION Provider, Abstract 06/29/2025 External Device Data ST[facility] ABSTRACTION Provider, Abstract 06/29/2025 External Device Data STL ABSTRACTION Provider, Abstract 06/26/2025 12:00 PM CDT Video Visit [facility] Pulmonology [address] [place] [phone] MD Panlobular emphysema (CMS/HCC) (Primary Dx); Overweight (BMI 25.0-29.9) 06/22/2025 10:40 AM CDT Office Visit [facility] [address] [facility] [place] [address] Ori Soto FNP AMADO (dyspnea on exertion) (Primary Dx); Opacity of lung on imaging study; Allergic reaction to alpha-gal; RUQ abdominal pain; Inflammatory arthritis; Gastroesophageal reflux disease without esophagitis 06/22/2025 Telephone [facility] [address] [facility] [place] [address] Ana Avila DO Patient Communication 06/07/2025 1:00 PM CDT - 06/07/2025 11:59 PM CDT Hospital Encounter [facility] CT Scan [place] [address] [place] [address] Ori Soto FNP Discharge Disposition: Home or Self Care 06/07/2025 Results Follow-Up [facility] [address] [place] [address] CHEST W CONTRAST 06/04/2025 10:20 AM CDT Video Visit [facility] Rheumatology- [facility] [address] [place] [address] Karen Estrella PA Polyarthralgia (Primary Dx); Left wrist pain; Arthralgia of right hand; Chronic pain of left knee 06/01/2025 Results Follow-Up [facility] [address] [place] [address] Ori Soto FNP ECHO COMPLETE - CONTRAST AND STRAIN IF INDICATED 05/28/2025 2:45 PM CDT - 05/28/2025 11:59 PM CDT Hospital Encounter [facility] Ultrasound [place] [address] [place] [phone] Ori Soto FNP Discharge Disposition: Home or Self Care 05/28/2025 Telephone [facility] [address] [place] [address] Ori Soto FNP Needs Orders Written 05/28/2025 Orders Only [facility] [address] [place] [address] Ori Soto FNP Small airways disease (Primary Dx); Shortness of breath; Interstitial lung abnormality (BEBETO) 05/25/2025 Telephone [facility] [address] [place] [address] Ana Avila DO Provider Call from Last 3 Months Social History Tobacco Use Types Packs/Day Years Used Date Smoking Tobacco: Former Cigarettes Q uit: 2003 Smokeless Tobacco: Never Tobacco Cessation:Counseling Given: Not Answered Sex and Gender Information Value Date Recorded Sex Assigned at Not on file Legal Sex Male 1:33 PM MOBILE APPLICATION TESTER Gender Identity Not on file Sexual Orientation Not on file Last Filed Vital Signs Vital Sign Reading Time Taken Comments Blood Pressure 132/74 06/22/2025 11:19 AM CDT Pulse 100 06/22/2025 11:19 AM CDT Temperature 36.9 C (98.5 F) 06/22/2025 11:19 AM CDT Respiratory Rate 18 06/22/2025 11:1 9 AM CDT Oxygen Saturation 94% 06/22/2025 11: 19 AM CDT Inhaled Oxygen Concentration - - Weight 98.3 kg (216 lb 12.8 oz) 025 11:19 AM CDT Height 188 cm (6' 2 ) 06/22/2025 11:19 AM CDT Body Mass Index 27.84 06/22/2025 11:19 AM CDT Plan of Treatment Upcoming Encounters Date Type Department Care Team (Late st Contact Info) Description 08/18/2025 3:00 PM MOBILE APPLICATION TESTER [facility] [address] [facility] [address] [place] [address] Dayron Ceballos MD [address] [facility] [address] [place] [address] Health Maintenance Due Date Last Done Comments HEPATITIS B VACCINES (1 of 3 - 19+ 3-dose series) 2000 Preventative Visit-Managed Medicaid 2000 HPV VACCINES (1 - 3-dose SCD M series) 2008 INFLUENZA VACCINE (#1) 2025 Pre-Diabetes and Diabetes Screening 11/04/2027 11/04/2024 DTAP/TDAP/TD VACCINES (4 - T d or Tdap) 07/31/2033 07/31/2023, 10/22/2013, 11/05/2004, Additional history exists Procedures Procedure Name Priority Date/Time Associated Diagnosis Comments CT CHEST W CONTRAST Routine 06/07/2025 2 :33 PM CDT Small airways disease Shortness of breath Interstitial lung abnormality (BEBETO) CREATININE Stat 06/07/2025 1:46 PM CDT ECHO COMPLETE Routine 05/28/2025 3:10 PM CDT Small airways disease Shortness of breath Interstitial lung abnormality (BEBETO) HEMOGLOBIN A1C Routine 11/04/2024 12:09 PM MOBILE APPLICATION TESTER Encounter to establish care with new doctor from Last 3 Months or Most Recently Relevant to Health Maintenance Results * CT CHEST W CONTRAST (06/07/2025 2:33 PM CDT) Anatomical Region Laterality Modality Chest Computed Tomogra phy 06/07/2025 2:17 PM CDT Impressions 06/07/2025 3:25 PM CDT IMPRESSION: 1. No evidence of acute cardiopulmonary disease. 2. Minimal scarring versus atelectasis in the lung bases; lungs otherwise appear clear. Narrative 06/07/2025 3:25 PM CDT EXAM: CT CHEST W CONTRAST DATE/TIME OF EXAM: 06/07/2025 2:33 PM REASON FOR EXAM: Dyspnea, chronic, unclear etiology DIAGNOSIS: Small airways disease; Shortness of breath; Interstitial lung abnormality (BEBETO) COMPARISON: None TECHNIQUE: Following the administration of contrast CT images were obtained from the thoracic inlet through the adrenal glands to encompass the chest. Sagittal and coronal 2-D re-formations were subsequently performed. FINDINGS: CHEST: Thoracic inlet and chest wall: No acute findings. No suspicious lymphadenopathy. Mediastinum: No pathologically enlarged or morphologically suspicious lymph nodes. Heart and vessels: Heart size is normal. No pericardial effusion. Lungs: A few minimal linear opacities in the lung bases and lingula most suggestive of minor scarring and/or atelectasis. The lungs otherwise appear clear; no mosaic attenuation or ground glass opacity to suggest significant air trapping. No acute airspace disease. Central airways are patent. No dominant lung nodules or masses. Pleura: No pleural effusion or pneumothorax. Upper abdomen: No acute findings. Soft tissues and Bones: No suspicious osseous lesions. Slightly exaggerated thoracic kyphosis with mild to moderate midthoracic spondylosis. Procedure Note Jason Gamboa MD - 06/07/2025 EXAM: CT CHEST W CONTRAST DATE/TIME OF EXAM: 06/07/2025 2:33 PM REASON FOR EXAM: Dyspnea, chronic, unclear etiology DIAGNOSIS: Small airways disease; Shortness of breath; Interstitial lung abnormality (BEBETO) COMPARISON: None TECHNIQUE: Following the administration of contrast CT images were obtained from the thoracic inlet through the adrenal glands to encompass the chest. Sagittal and coronal 2-D re-formations were subsequently performed. FINDINGS: CHEST: Thoracic inlet and chest wall: No acute findings. No suspicious lymphadenopathy. Mediastinum: No pathologically enlarged or morphologically suspicious lymph nodes. Heart and vessels: Heart size is normal. No pericardial effusion. Lungs: A few minimal linear opacities in the lung bases and lingula most suggestive of minor scarring and/or atelectasis. The lungs otherwise appear clear; no mosaic attenuation or ground glass opacity to suggest significant air trapping. No acute airspace disease. Central airways are patent. No dominant lung nodules or masses. Pleura: No pleural effusion or pneumothorax. Upper abdomen: No acute findings. Soft tissues and Bones: No suspicious osseous lesions. Slightly exaggerated thoracic kyphosis with mild to moderate midthoracic spondylosis. IMPRESSION: 1. No evidence of acute cardiopulmonary disease. 2. Minimal scarring versus atelectasis in the lung bases; lungs otherwise appear clear. us Ori Soto [facility] CT ORDERABLES Final Resu lt * CREATININE (06/07/2025 1:46 PM CDT) CREATININE 0.75 0.67 - 1.17 mg/dL 06/07/2025 2:11 PM CDT [facility] GFR >60 >=60 mL/min/1.7 3 sq meter 06/07/2025 2:11 PM CDT [facility] Comment:eGFR calculated with 2020 CKD-EPI equation. Vegetarian diet, extremely high or low muscle mass, and may affect results. Cystatin C with Glomerular Filtration Rate is a suitable alternative for these patients. Blood BLOOD SPECIMEN / Unknown Venipuncture / Unknown 06/07/2025 1:46 PM CDT 06/07/2025 1:48 PM CDT us Ori Soto [employer] CHEMISTRY ORDERABLES Final Result [facility] CLIA # [id number] [address] [place] [id number] * ECHO COMPLETE - CONTRAST AND STRAIN IF INDICATED (05/28/2025 3:10 PM CDT) EJECTION FRACTION 63 INTERFACE SYSTEM 05/28/2025 2:50 PM CDT Narrative INTERFACE SYSTEM - 05/29/2025 11:18 AM CDT [facility] Radiology Services - Echocardiology [address] [place] [address] Transthoracic Echocardiography Patient: Rayo Gayle Study ID: [id number] Gender: M : 1980 Age: 45 Room: [facility] Study Date: 05/28/2025 Pt Status: Study Time: 02:50:58 PM CSN #: [id number] Ordering:Ori Soto [employer] Molder: Fabiana Vargas Indications and History: Small airways disease [J98.4 (ICD-10-CM)]; Shortness of breath [R06.02 (ICD-10-CM)]; Interstitial lung abnormality (BEBETO) [R91.8 (ICD-10-CM)] Summary and Conclusion: - Left ventricle: The cavity size is normal. Wall thickness is increased in a pattern of mild LVH. Global systolic function is normal. The estimated ejection fraction is 60-65%. For Epic reporting: the left ventricular ejection fraction is 63% by biplane method of disks. No diagnostic regional wall motion abnormality identified. Cannot assess LV diastolic function. - Right ventricle: The cavity size is normal. Systolic function is normal. Systolic pressure is within the normal range. - Aortic valve: There is mild regurgitation. Procedure information: Study status: Routine. Procedure: A transthoracic echocardiogram was performed. Image quality was adequate. Scanning was performed from the parasternal, apical, subcostal, and suprasternal notch acoustic windows. Study components: M-mode, 2D, complete spectral Doppler, and color Doppler. Height: 188cm. Height: 74in. Weight: 92kg. Weight: 202.9lb. BMI: 26.1kg/m^2. BSA: 2.2m^2. Study date: 05/28/2025. Study time: 02:50 PM. Cardiac Anatomy: LEFT VENTRICLE: The cavity size is normal. Wall thickness is increased in a pattern of mild LVH. Global systolic function is normal. The estimated ejection fraction is 60-65%. For Epic reporting: the left ventricular ejection fraction is 63% by biplane method of disks. No diagnostic regional wall motion abnormality identified. Cannot assess LV diastolic function. RIGHT VENTRICLE: The cavity size is normal. Systolic function is normal. Systolic pressure is within the normal range. LEFT ATRIUM: The atrium is normal in size. RIGHT ATRIUM: The atrium is normal in size. ATRIAL SEPTUM: No obvious PFO or ASD identified by 2D imaging and color Doppler. AORTIC VALVE: The valve is trileaflet. The leaflets are normal thickness. Mobility is not restricted. There is no stenosis. There is mild regurgitation. MITRAL VALVE: Structurally normal valve. Mobility is not restricted. No evidence for prolapse. There is no evidence for stenosis. There is trivial regurgitation. TRICUSPID VALVE: Structurally normal valve. Mobility is unrestricted. There is no evidence for stenosis. There is trivial regurgitation. PULMONIC VALVE: Not well visualized. The valve appears to be grossly normal. There is no evidence for stenosis. There is no significant regurgitation. PERICARDIUM: There is no pericardial effusion. AORTA: Aortic root: The root is not dilated. Aortic arch: The vessel is not dilated. INTRACARDIAC MASS THROMBUS: No apparent intracavitary masses or thrombi detected. Measurements Left ventricle Value Left atrium Value FS, LAX 32 % Vol, S 33 ml FS 32 % Vol/bsa, S 15 ml/m^2 EDV 104 ml ESV 42 ml Aortic valve Value EF 60 % Peak v, S 133 cm/sec EDV/bsa 47 ml/m^2 Mean v, S 94 cm/sec ESV/bsa 19 ml/m^2 VTI, S 25.5 cm EF, 1-p A2C 61 % Mean grad, S 4 mm Hg EF, 1-p A4C 62 % EDV, 2-p 115 ml Mitral valve Value ESV, 2-p 43 ml Peak E/A ratio 1.4 EF, 2-p 63 % Peak LV-LA grad S 100 mm Hg EDV/bsa, 2-p 52 ml/m^2 ESV/bsa, 2-p 19 ml/m^2 Tricuspid valve Value EDV, MM Teich. 104 ml TR peak v 254 cm/sec EF, MM Teich. 60 % Peak RV-RA grad, S 26 mm Hg EDV/bsa, MM Teich. 47 ml/m^2 EF, MM on 2D Teich. 60 % Descending aorta Value E/e', lat darryl, TDI 16 Prox Nikolai diam 1.7 cm E/e', med darryl, TDI 12 E/e', avg, TDI 14 Inferior vena cava Value Prox diam, exp 1.7 cm Legend: (L) and (H) felisha values outside specified reference range. Prepared and Electronically Authenticated Tr Lovell MD Confirmed 05/29/2025 11:18 Procedure Note Tr Lovell MD - 05/29/2025 [facility] Radiology Services - Echocardiology [address] [address] Transthoracic Echocardiography Patient: Rayo Gayle Study ID:[id number] Gender: M : 1980 Age: 45 Room: [facility] Study Date: 05/28/2025 Pt Status: Study Time: 02:50:58 PM CSN #: [id number] Ordering:Ori Soto [employer] Molder: Fabiana Vargas Indications and History: Small airways disease [J98.4 (ICD-10-CM)];Shortness of breath [R06.02 (ICD-10-CM)]; Interstitial lung abnormality (BEBETO)[R91.8 (ICD-10-CM)] Summary and Conclusion: - Left ventricle: The cavity size is normal. Wall thickness is increasedin a pattern of mild LVH. Global systolic function is normal. The estimated ejection fraction is 60-65%. For Epic reporting: the left ventricular ejection fraction is 63% by biplane method of disks. No diagnosticregional wall motion abnormality identified. Cannot assess LV diastolicfunction. - Right ventricle: The cavity size is normal. Systolic function isnormal. Systolic pressure is within the normal range. - Aortic valve: There is mild regurgitation. Procedure information: Study status: Routine. Procedure: Atransthoracic echocardiogram was performed. Image quality was adequate. Scanning was performed from the parasternal, apical, subcostal, and suprasternalnotch acoustic windows. Study components: M-mode, 2D, completespectral Doppler, and color Doppler. Height: 188cm. Height: 74in. Weight:92kg. Weight: 202.9lb. BMI: 26.1kg/m^2. BSA: 2.2m^2. Study date: 05/28/2025. Study time: 02:50 PM. Cardiac Anatomy: LEFT VENTRICLE: The cavity size is normal. Wall thickness is increased millie pattern of mild LVH. Global systolic function is normal. The estimated ejection fraction is 60-65%. For Epic reporting: the left ventricularejection fraction is 63% by biplane method of disks. No diagnostic regional wallmotion abnormality identified. Cannot assess LV diastolic function. RIGHT VENTRICLE: The cavity size is normal. Systolic function isnormal. Systolic pressure is within the normal range. LEFT ATRIUM: The atrium is normal in size. RIGHT ATRIUM: The atrium is normal in size. ATRIAL SEPTUM: No obvious PFO or ASD identified by 2D imaging and color Doppler. AORTIC VALVE: The valve is trileaflet. The leaflets are normalthickness. Mobility is not restricted. There is no stenosis. There is mild regurgitation. MITRAL VALVE: Structurally normal valve. Mobility is not restricted.No evidence for prolapse. There is no evidence for stenosis. There istrivial regurgitation. TRICUSPID VALVE: Structurally normal valve. Mobility isunrestricted. There is no evidence for stenosis. There is trivial regurgitation. PULMONIC VALVE: Not well visualized. The valve appears to be grosslynormal. There is no evidence for stenosis. There is no significantregurgitation. PERICARDIUM: There is no pericardial effusion. AORTA: Aortic root: The root is not dilated. Aortic arch: The vessel is not dilated. INTRACARDIAC MASS THROMBUS: No apparent intracavitary masses or thrombi detected. Measurements Left ventricle Value Left atrium Value FS, LAX 32 % Vol, S 33 ml FS 32 % Vol/bsa, S 15 ml/m^2 EDV 104 ml ESV 42 ml Aortic valve Value EF 60 % Peak v, S 133 cm/sec EDV/bsa 47 ml/m^2 Mean v, S 94 cm/sec ESV/bsa 19 ml/m^2 VTI, S 25.5 cm EF, 1-p A2C 61 % Mean grad, S 4 mm Hg EF, 1-p A4C 62 % EDV, 2-p 115 ml Mitral valve Value ESV, 2-p 43 ml Peak E/A ratio 1.4 EF, 2-p 63 % Peak LV-LA grad S 100 mm Hg EDV/bsa, 2-p 52 ml/m^2 ESV/bsa, 2-p 19 ml/m^2 Tricuspid valve Value EDV, MM Teich. 104 ml TR peak v 254 cm/sec EF, MM Teich. 60 % Peak RV-RA grad, S 26 mm Hg EDV/bsa, MM Teich. 47 ml/m^2 EF, MM on 2D Teich. 60 % Descending aorta Value E/e', lat darryl, TDI 16 Prox Nikolai diam 1.7 cm E/e', med darryl, TDI 12 E/e', avg, TDI 14 Inferior vena cava Value Prox diam, exp 1.7 cm Legend: (L) and (H) felisha values outside specified reference range. Prepared and Electronically Authenticated Tr Lovell MD Confirmed 05/29/2025 11:18 us Ori Soto [employer] US ORDERABLES Final Resu lt INTERFACE SYSTEM Refer to clinic/hospital department * HEMOGLOBIN A1C (11/04/2024 12:09 PM MOBILE APPLICATION TESTER) HEMOGLOBIN A1C 5.4 <5.7 % of total Hgb [facility] Comment: For the purpose of screening for the presence of diabetes: <5.7% Consistent with the absence of diabetes 5.7-6.4% Consistent with increased risk for diabetes (prediabetes) > or =6.5% Consistent with diabetes This assay result is consistent with a decreased risk of diabetes. Currently, no consensus exists regarding use of hemoglobin A1c for diagnosis of diabetes in children. According to [place] Diabetes Association (ADA) guidelines, hemoglobin A1c <7.0% represents optimal control in non- diabetic patients. Different metrics may apply to specific patient populations. Standards of Medical Care in Diabetes(ADA). ESTIMATED AVERAGE GLUCOSE (MG/DL) 108 mg/dL [facility] ESTIMATED AVERAGE GLUCOSE (MMOL/L) 6.0 mmol/L [facility] Comment: FASTING:UNKNOWN FASTING: UNKNOWN Test Performed at: [facility] [id number] [id number] Janes Barrios MD Blood 11/04/2024 12:0 9 PM MOBILE APPLICATION TESTER 11/04/2024 12:10 PM MOBILE APPLICATION TESTER Ori Soto [facility] CHEMISTRY ORDERABLES Final Result [facility] [phone] [facility] [id number] [id number] from Last 3 Months or Most Recently Relevant to Health Maintenance Insurance [facility] MEDICAID [facility] Care Teams Chemical Processing Supervisor Relationship Specialty Start Date End Date Ana Avila DO [address] [place] [id number] PCP - General Family Practice 10/09/24
--- OUTSIDE RECORDS SUMMARY | 2025-08-02 14:22 | XMS_ITS | Encounter Summary ---
Author Organization [facility] Address [address] [place] [address] Care Team Providers Care Yeast Cake Cutter Name Role Phone Ana Avila DO Primary Care Provider [phone] Encounter Details Date Type Department Care Team (Late st Contact Info) Description 06/07/2025 Results Follow-Up [facility] [place] [address] [place] [address] [facility] [address] [place] [address] [address] CHEST W CONTRAST Social History Tobacco Use Types Packs/Day Years Used Date Smoking Tobacco: Former Cigarettes Q uit: 2002 Smokeless Tobacco: Never Sex and Gender Information Value Date Recorded Sex Assigned at Not on file Legal Sex Male 1:33 PM 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 UP WORKER Gender Identity Not on file Sexual Orientation Not on file documented as of this encounter Plan of Treatment Upcoming Encounters Date Type Department Care Team (Late st Contact Info) Description 08/18/2025 3:00 PM BREAK UP WORKER Office Visit [facility]- [place] [address] [facility] [address] [place] [address] Dayron Ceballos MD [address] [facility] [address] [place] [address] documented as of this encounter Visit Diagnoses Not on filedocumented in this encounter Care Teams Yeast Cake Cutter Relationship Specialty Start Date End Date Ana Avila DO [address] [place] [phone] PCP - General Family Practice 10/09/24 documented as of this encounter
--- OUTSIDE RECORDS SUMMARY | 2025-08-02 14:22 | XMS_ITS | Patient Health Record ---
Author Organization [facility] Address [address] [place] [address] Support Name Relationship Address , Shavon Gayle Emergency Contact [address] [place] [phone] Rayo Gayle Guarantor Unknown [phone] Care Team Providers Care Leaf Blender Name Role Phone Cary MACKENZIE, Radha Primary Care Provider Stephania Ghotra Noni Unavailable [phone] Milly Saran Unavailable [phone] Rosie Horne Unavailable Allergies Allergen (clinical drug ingredient) Drug/Non Drug Allergy documented on EMR Reaction Allergy Type Onset Date Status No Known Drug Allergy Unknown Drug Allergy Active Results Component Value Reference Range Flag Notes Urine Drug Screen (cup read) - [id number] Reviewed date:02/12/2025 02:40:11 PM Interpretation: Performing Lab: Notes/Report: OXY + Urine Drug Screen (cup read) - [id number] Reviewed date:04/16/2025 03:18:33 PM Interpretation: Performing Lab: Notes/Report: OXY + Urine Drug Screen (cup read) - [id number] Reviewed date:06/22/2025 03:18:52 PM Interpretation: Performing Lab: Notes/Report: OXY Pos zzzUrine Drug Screen (confir mation by instrument) - [id number] Reviewed date:10/13/2024 01:29:40 PM Interpretation: Performing Lab: Notes/Report: Urine Confirmation Panel (in strument) - [id number] Reviewed date:04/21/2025 05:09:01 PM Interpretation: Performing Lab: Notes/Report: 6-Acetylmorphine 0 <6 ng/mL N This estefani t was developed and its performance characteristics determined by [facility]. It has not been cleared or approved by the U.S. Food and Drug Administration. 7-Aminoclonazepam 0 <60 ng/mL N This te st was developed and its performance characteristics determined by [facility]. It has not been cleared or approved by the U.S. Food and Drug Administration. Alprazolam 0 <60 ng/mL N This test was developed and its performance characteristics determined by [facility]. It has not been cleared or approved by the U.S. Food and Drug Administration. Amphetamine 0 <75 ng/mL N This test was developed and its performance characteristics determined by [facility]. It has not been cleared or approved by the U.S. Food and Drug Administration. aOH-Alprazolam 0 <60 ng/mL N This test was developed and its performance characteristics determined by [facility]. It has not been cleared or approved by the U.S. Food and Drug Administration. Buprenorphine 0.4 <7.5 ng/mL N This test w as developed and its performance characteristics determined by [facility]. It has not been cleared or approved by the U.S. Food and Drug Administration. Norbuprenorphine 0.0 <37.5 ng/mL N This te st was developed and its performance characteristics determined by [facility]. It has not been cleared or approved by the U.S. Food and Drug Administration. Carisoprodol 0 <75 ng/mL N This test wa s developed and its performance characteristics determined by [facility]. It has not been cleared or approved by the U.S. Food and Drug Administration. Codeine 0 <75 ng/mL N This test was developed and its performance characteristics determined by [facility]. It has not been cleared or approved by the U.S. Food and Drug Administration. EDDP 0 <75 ng/mL N This test was developed and its performance characteristics determined by [facility]. It has not been cleared or approved by the U.S. Food and Drug Administration. Fentanyl 0 <6 ng/mL N This test was developed and its performance characteristics determined by [facility]. It has not been cleared or approved by the U.S. Food and Drug Administration. Hydrocodone 0 <75 ng/mL N This test was developed and its performance characteristics determined by [facility]. It has not been cleared or approved by the U.S. Food and Drug Administration. Hydromorphone 0 <75 ng/mL N This test w as developed and its performance characteristics determined by [facility]. It has not been cleared or approved by the U.S. Food and Drug Administration. Lorazepam 0 <60 ng/mL N This test was developed and its performance characteristics determined by [facility]. It has not been cleared or approved by the U.S. Food and Drug Administration. MDMA 4 <75 ng/mL N This test was developed and its performance characteristics determined by [facility]. It has not been cleared or approved by the U.S. Food and Drug Administration. Meperidine 0.0 <37.5 ng/mL N This test was developed and its performance characteristics determined by [facility]. It has not been cleared or approved by the U.S. Food and Drug Administration. Meprobamate 0 <75 ng/mL N This test was developed and its performance characteristics determined by [facility]. It has not been cleared or approved by the U.S. Food and Drug Administration. Methamphetamine 0 <75 ng/mL N This test was developed and its performance characteristics determined by [facility]. It has not been cleared or approved by the U.S. Food and Drug Administration. Methadone 0 <75 ng/mL N This test was developed and its performance characteristics determined by [facility]. It has not been cleared or approved by the U.S. Food and Drug Administration. Morphine 0 <75 ng/mL N This test was developed and its performance characteristics determined by [facility]. It has not been cleared or approved by the U.S. Food and Drug Administration. Nordiazepam 0 <60 ng/mL N This test was developed and its performance characteristics determined by [facility]. It has not been cleared or approved by the U.S. Food and Drug Administration. Norfentanyl 0 <6 ng/mL N This test was developed and its performance characteristics determined by [facility]. It has not been cleared or approved by the U.S. Food and Drug Administration. Normeperidine 0.0 <37.5 ng/mL N This test was developed and its performance characteristics determined by [facility]. It has not been cleared or approved by the U.S. Food and Drug Administration. O-desmethyltramadol 0 <75 ng/mL N This test was developed and its performance characteristics determined by [facility]. It has not been cleared or approved by the U.S. Food and Drug Administration. Oxazepam 0 <60 ng/mL N This test was developed and its performance characteristics determined by [facility]. It has not been cleared or approved by the U.S. Food and Drug Administration. Oxycodone 705.4 <37.5 ng/mL H This test was developed and its performance characteristics determined by [facility]. It has not been cleared or approved by the U.S. Food and Drug Administration. Oxymorphone 0 <75 ng/mL N This test was developed and its performance characteristics determined by [facility]. It has not been cleared or approved by the U.S. Food and Drug Administration. Phencyclidine 0.0 <7.5 ng/mL N This test w as developed and its performance characteristics determined by [facility]. It has not been cleared or approved by the U.S. Food and Drug Administration. Tapentadol 0.0 <37.5 ng/mL N This test was developed and its performance characteristics determined by [facility]. It has not been cleared or approved by the U.S. Food and Drug Administration. Temazepam 0 <60 ng/mL N This test was developed and its performance characteristics determined by [facility]. It has not been cleared or approved by the U.S. Food and Drug Administration. Tramadol 0 <75 ng/mL N This test was developed and its performance characteristics determined by [facility]. It has not been cleared or approved by the U.S. Food and Drug Administration. Norhydrocodone 0 <75 ng/mL N This test was developed and its performance characteristics determined by [facility]. It has not been cleared or approved by the U.S. Food and Drug Administration. Noroxycodone 1945 <38 ng/mL H This test wa s developed and its performance characteristics determined by [facility]. It has not been cleared or approved by the U.S. Food and Drug Administration. Pregabalin 0 <225 ng/mL N This test was developed and its performance characteristics determined by [facility]. It has not been cleared or approved by the U.S. Food and Drug Administration. Gabapentin 0 <225 ng/mL N This test was developed and its performance characteristics determined by [facility]. It has not been cleared or approved by the U.S. Food and Drug Administration. Benzoylecgonine 0.0 <37.5 ng/mL N This estefani t was developed and its performance characteristics determined by [facility]. It has not been cleared or approved by the U.S. Food and Drug Administration. 4-Hydroxy Xylazine 0 <25 ng/mL N This t est was developed and its performance characteristics determined by [facility]. It has not been cleared or approved by the U.S. Food and Drug Administration. Tox Results Reviewed date:04/23/2025 09:25:51 AM Interpretation: Performing Lab: Notes/Report: Reason For Referral No Information Medications Medication SIG (Take, Route, Frequency, Duration) Notes Start Date End Date Status oxyCODONE HCl 10 MG Tablet 1 tablet Orally every 6 hrs; Duration: 30 days As needed do not exceed 4 per day Fill on 07/22/2025 06/23/2025 08/21/2025 Active Fluticasone Propionate *Pick strength-form from [facility] for eRX* Active Fish Oil *Pick strength-form from [facility] for eRX* Active cyclobenzaprine *Reorder from [facility] for eRx and Interaction Alerts* Active Aspirin *Pick strength-form from [facility] for eRX* Active Vitamin D3 *Pick strength-form from [facility] for eRX* Active Oxycodone *Reorder from [facility] for eRx and Interaction Alerts* Active Cyclobenzaprine HCl 10 MG Tablet 1 tablet as needed Orally Once a day; Duration: 30 days Fill 30 days from previous Rx 06/22/2025 Active Ibuprofen *Pick strength-form from [facility] for eRX* Active Social History Social History Additional Details Category Social Info Options Details Migrated Social History Migrated Social History Alcoholic beverages? - No, Applying for disability? - No, Currently on disability? - Yes, Drug or substance abuse? - No, Involved in any legal proceedings or lawsuits? - No, Marital Status - , Nonprescription drug use? - No, Participation in detoxification or rehabilitation - No, Smoking - No, Working currently? - No Problems Problem Type SNOMED Code ICD Code Onset Dates Problem Status W/U Status Risk Notes Problem Chronic pain syndrome (115753486) Chronic pain syndrome (G89.4) 02/20/20 24 Active confirmed Problem Primary generalised osteoarthritis (528111654) Primary generalized (osteo)arthritis (M15.0) Active confirmed Problem Degeneration of cervical intervertebral disc (11569366) Other cervical disc degeneration, unspecified cervical region (M50.30) 02/20/20 Active confirmed Problem Cervical radiculopathy (27262490) Radiculopathy, cervical region (M54.12) 02/20/20 Active confirmed Problem Abnormal gait (52513338) Unspecified abnormalities of gait and mobility (R26.9) 02/20/20 Active confirmed Problem High risk drug monitoring status (074114941) alf (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 of opiate analgesic (Z79.891) Active confirmed Problem Cervical disc disorder (870105420) DDD (degenerative disc disease), cervical (M50.30) Active confirmed Problem Inflammatory arthritis (3763238) Inflammatory arthritis (M19.90) Active confirmed Problem Abnormal gait (44019835) Abnormality of gait and mobility (R26.9) Active confirmed Vital Signs Height-cm 187.96 cm 04/16/2025 Weight-kg 91.63 kg 04/16/2025 Height 74.00 in 04/16/2025 Weight 202 lbs 04/16/2025 BMI 25.93 kg/m2 04/16/2025 Procedures Procedure Date Ordered Date Performed Result Body Sit e Epidural, Cervical/ Thoracic , w/ imaging guidance - [id number] 01/12/2025 01/12/2025 N/A Epidural, Cervical/ Thoracic , w/ imaging guidance - [id number] 04/22/2025 05/13/2025- Encounters Encounter Location Date Provider Diagnosis [facility] [address] [place] [address] 05/13/2025 Saran Atkins Radiculopathy, cervical region M54.12 [facility] [address] [place] [address] 01/12/2025 Saran Cartert Radiculopathy, cervical region M54.12 [facility] [address] [place] [address] 06/22/2025 Noni Ghotra Chronic pain syndrome G89.4 ; Radiculopathy, cervical region M54.12 ; DDD (degenerative disc disease), cervical M50.30 ; Primary generalized (osteo)arthritis M15.0 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 Z79.891 [facility] [address] [place] [address] 04/16/2025 Noni Ghotra Chronic pain syndrome G89.4 ; Radiculopathy, cervical region M54.12 ; DDD (degenerative disc disease), cervical M50.30 ; Primary generalized (osteo)arthritis M15.0 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 Z79.891 [facility] [address] [place] [address] 02/12/2025 Noni Ghotra Chronic pain syndrome G89.4 ; Radiculopathy, cervical region M54.12 ; DDD (degenerative disc disease), cervical M50.30 ; Primary generalized (osteo)arthritis M15.0 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 Z79.891 [facility] [place] [address] [place] [address] 11/04/2024 Saran Atkins Chronic pain syndrome G89.4 ; Other cervical disc degeneration, unspecified cervical region M50.30 ; Radiculopathy, cervical region M54.12 ; Myalgia, other site M79.18 ; Unspecified abnormalities of gait and mobility R26.9 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 Z79.891 [facility] [place] [address] [place] [address] 10/07/2024 Saran Atkins Chronic pain syndrome G89.4 ; DDD (degenerative disc disease), cervical M50.30 ; Radiculopathy, cervical region M54.12 ; Myofascial pain syndrome M79.18 ; Abnormality of gait and mobility R26.9 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 Z79.891 [facility] [place] [address] [place] [address] 11/02/2024 Saran [facility] [place] [address] [place] [address] 10/02/2024 [facility] [place] [address] [place] [address] 10/02/2024 Rosie Quintanasyutstevie-Pric e [facility] [place] [address] [place] [place] [address] 10/02/2024 Saran Atkins [facility] [place] [address] [place] [place] [address] 10/02/2024 Saran Atkins [facility] [place] [address] [place] [address] 09/14/2024 Saran Atkins [facility] [place] [address] [place] [place] [address] 09/10/2024 Saran Atkins [facility] [place] [address] [place] [place] [address] 08/31/2024 Saran Atkins [facility] [address] [place] [address] 06/22/2025 Saran Atkins Radiculopathy, cervical region M54.12 [facility] [place] [address] [place] [place] [address] 05/20/2025 Saran Atkins Radiculopathy, cervical region M54.12 [facility] [address] [facility] [facility] [place] [address] 04/16/2025 Rosie De Leonuksyutova-Pric e Radiculopathy, cervical region M54.12 [facility] [address] [place] [address] 02/12/2025 Saran Atkins [facility] [address] [place] [address] 02/09/2025 Noni Ghotra [facility] [address] [place] [address] 01/13/2025 Saran Atkins [facility] [place] [address] [place] [place] [address] 11/02/2024 Saran Atkins Chronic pain syndrome G89.4 and Radiculopathy, cervical region M54.12 Assessments Encounter Date Diagnosis (ICD Code) Assessment Notes Treatment Notes Treatment Clinical Notes Section Notes 10/07/2024 Chronic pain syndrome (ICD-10 - G89.4) I had a nice visit with the patient and his today regarding his chronic pain issues. He has had all of his bloodwork done with rheumatology and will have a follow up with them in the near future. They are hopefully going to discuss any potential treatments for him. Otherwise, he is doing alright with the medications so we will continue those unchanged. He is interested in repeating a cervical epidural steroid injection, which seems reasonable, so we will get this scheduled in the near future and follow up with them thereafter. Schedule repeat IRVIN 10/07/2024 DDD (degenerative disc disease), cervical (ICD-10 - M50.30) 11/02/2024 Chronic pain syndrome (ICD-10 - G89.4) 11/04/2024 Chronic pain syndrome (ICD-10 - G89.4) I had a nice visit with the patient today regarding his chronic pain issues. We're waiting on authorization for the cervical epidural. We did discuss his medications and that [facility] will [facility] after his [facility] is up in March. For now we will continue them but we will hopefully see him soon for the cervical epidural and we will just await input from the [facility] on how they would like to proceed with his medications. The patient continues with chronic pain requiring treatment to help restore function and improve quality of life. Risks of opioid therapy as well as interaction of opioids with alcohol, illicit drugs, muscle relaxers, and other sedative medications are reviewed briefly with patient again today. The patient has trialed all other reasonable treatment options and uses the medication to alleviate pain in order to remain active and rest with less pain. No clinically relevant medication side effects are noted. Last UDS and [place] SURGICAL INSTRUMENTS INSPECTOR reviewed today. Patient is advised that best long-term goals include increased activity, core strengthening, proper weight management, coping strategies, avoidance of painful triggers, and targeted interventional therapy. We will see the patient for routine follow up in accordance with all clinic policies. We did remind patient today of current guidelines to decrease opioid when possible. We will continue to stress nonopioid treatment. Schedule IRVIN The patient continues with chronic pain requiring treatment to help restore function and improve quality of life. Risks of opioid therapy as well as interaction of opioids with alcohol, illicit drugs, muscle relaxers, and other sedative medications are reviewed briefly with patient again today. The patient has trialed all other reasonable treatment options and uses the medication to alleviate pain in order to remain active and rest with less pain. No clinically relevant medication side effects are noted. Last UDS and [place] SUR[employer]ICAL INSTRUMENTS INSPECTOR reviewed today. Patient is advised that best long-term goals include increased activity, core strengthening, proper weight management, coping strategies, avoidance of painful triggers, and targeted interventional therapy. We will see the patient for routine follow up in accordance with all clinic policies. We did remind patient today of current guidelines to decrease opioid when possible. We will continue to stress nonopioid treatment. 11/04/2024 Other cervical disc degeneration, unspecified cervical region (ICD-10 - M50.30) 04/16/2025 Chronic pain syndrome (ICD-10 - G89.4) I had a nice discussion with the patient today regarding his chronic pain complaints. He continues with neck pain as well as radicular symptoms and multiple joint pain. He does report that his neck pain and radicular symptoms have been returning lately. He has previously done well with IRVIN's in the past noting greater than 50% relief for greater than 3 months. After discussion, he would like to proceed with an episodic IRVIN C7-T1. He continues to do well with his current medication regimen so he will continue that at present level. I did discuss lifestyle modifications as well as a bowel regimen. He does report he and his family were recently sick with RSV and it took them a while to all get over it. He denies any other changes in his health since we last seen him or any untoward side effects of medication. He will return to clinic after procedure to monitor for treatment effectiveness and compliance. The patient continues with chronic pain requiring treatment to help restore function and improve quality of life. Risks of opioid therapy as well as interaction of opioids with alcohol, illicit drugs, muscle relaxers, and other sedative medications are reviewed briefly with patient again today. The patient has trialed all other reasonable treatment options and uses the medication to alleviate pain in order to remain active and rest with less pain. No clinically relevant medication side effects are noted. Last UDS and [place] [employer] INSTRUMENTS INSPECTOR reviewed today. Patient is advised that best long-term goals include increased activity, core strengthening, proper weight management, coping strategies, avoidance of painful triggers, and targeted interventional therapy. We will see the patient for routine follow up in accordance with all clinic policies. We did remind patient today of current guidelines to decrease opioid when possible. We will continue to stress nonopioid treatment. RECOMMEND THERAPEUTIC CERVICAL EPIDURAL STEROID INJECTION, levels C7-T1 The patient reports overall 50% improvement in function and decrease in pain for greater than one month from previous diagnostic CAROL. The patient also reports improvement in tolerance to activities which generally cause pain. Based on the results of previous diagnostic CAROL, a therapeutic CAROL is recommended. Expectation from a successful therapeutic epidural steroid injection is at least 50-70% relief of pain from baseline and evidence of improved function for at least six to eight weeks after delivery. The goal of epidural steroid injections is to reduce pain and inflammation, restoring range of motion and, thereby, facilitating progress in more active treatment programs, and avoiding surgery. The procedure and risks were discussed with the patient including but not limited to infection, bleeding, neurological complications, side effects from medications, no change in pain, worsening of pain, or even . We also discussed conservative options, surgical options, and medical management with patient as well. The patient indicates understanding and wishes to proceed with the recommended treatment approach. The patient was given written information about the procedure and all questions were answered. RECOMMEND URINE TESTING TODAY Urine drug screening will be performed today to monitor compliance with opioid therapy or to serve as a baseline screen for a patient who may be a candidate for opioid therapy in the future, pending UDS results. We will monitor with in-office testing (rapid testing) today and review the results prior to dispensing prescription. All positive results will be sent for quantitative analysis to ensure accuracy and quantify amounts. Any expected positive results that return negative will also be sent for quantitative analysis. Any questionable read or any medication we cannot test for in the office confidently will be sent for quantitative analysis, as well. Patient has been made aware of this policy and agrees to abide by our urine testing policy. 04/16/2025 Radiculopathy, cervical region (ICD-10 - M54.12) 04/16/2025 Radiculopathy, cervical region (ICD-10 - M54.12) 05/13/2025 Radiculopathy, cervical region (ICD-10 - M54.12) 05/20/2025 Radiculopathy, cervical region (ICD-10 - M54.12) 06/22/2025 Chronic pain syndrome (ICD-10 - G89.4) I had a nice discussion with the patient today regarding his chronic pain complaints. He status post IRVIN which he reports helped relieve his pain greater than 50% and he is functioning much better overall. He does state he typically does best repeating these on 3-month intervals. He feels this medication is working reasonably well. He denies any changes since we last seen him or any untoward side effects of the medication. I did discuss lifestyle modifications as well as a bowel regimen. He will continue his medication at present level and return to clinic in 2 months to monitor for treatment effectiveness and compliance. The patient continues with chronic pain requiring treatment to help restore function and improve quality of life. Risks of opioid therapy as well as interaction of opioids with alcohol, illicit drugs, muscle relaxers, and other sedative medications are reviewed briefly with patient again today. The patient has trialed all other reasonable treatment options and uses the medication to alleviate pain in order to remain active and rest with less pain. No clinically relevant medication side effects are noted. Last UDS and [place] SURGICAL INSTRUMENTS INSPECTOR reviewed today. Patient is advised that best long-term goals include increased activity, core strengthening, proper weight management, coping strategies, avoidance of painful triggers, and targeted interventional therapy. We will see the patient for routine follow up in accordance with all clinic policies. We did remind patient today of current guidelines to decrease opioid when possible. We will continue to stress nonopioid treatment. URINE TESTING TODAY; POINT OF SERVICE Urine drug screening will be performed today to monitor compliance with opioid therapy or to serve as a baseline screen for a patient who may be a candidate for opioid therapy in the future, pending UDS results. We will monitor with in-office testing (rapid testing) today and review the results prior to dispensing prescription, as well. Patient has been made aware of this policy. 06/22/2025 Radiculopathy, cervical region (ICD-10 - M54.12) 02/12/2025 Chronic pain syndrome (ICD-10 - G89.4) I had a nice discussion with the patient today regarding his chronic pain complaints. He is status post IRVIN which he reports helped relieve his pain greater than 50%. He states these always helped him quite a bit. He is following with rheumatology and has another follow-up on February 26. He states he was diagnosed with an inflammatory arthritis. 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 He will keep us updated on everything. He is doing well on his current medication regimen so we will continue that at present level and return to clinic in 2 months to monitor for treatment effectiveness and compliance. The patient continues with chronic pain requiring treatment to help restore function and improve quality of life. Risks of opioid therapy as well as interaction of opioids with alcohol, illicit drugs, muscle relaxers, and other sedative medications are reviewed briefly with patient again today. The patient has trialed all other reasonable treatment options and uses the medication to alleviate pain in order to remain active and rest with less pain. No clinically relevant medication side effects are noted. Last UDS and AR SURGICAL INSTRUMENTS INSPECTOR reviewed today. Patient is advised that best long-term goals include increased activity, core strengthening, proper weight management, coping strategies, avoidance of painful triggers, and targeted interventional therapy. We will see the patient for routine follow up in accordance with all clinic policies. We did remind patient today of current guidelines to decrease opioid when possible. We will continue to stress nonopioid treatment. URINE TESTING TODAY; POINT OF SERVICE Urine drug screening will be performed today to monitor compliance with opioid therapy or to serve as a baseline screen for a patient who may be a candidate for opioid therapy in the future, pending UDS results. We will monitor with in-office testing (rapid testing) today and review the results prior to dispensing prescription, as well. Patient has been made aware of this policy. 02/12/2025 Radiculopathy, cervical region (ICD-10 - M54.12) 01/12/2025 Radiculopathy, cervical region (ICD-10 - M54.12) 06/22/2025 Radiculopathy, cervical region (ICD-10 - M54.12) 04/16/2025 DDD (degenerative disc disease), cervical (ICD-10 - M50.30) 11/04/2024 Radiculopathy, cervical region (ICD-10 - M54.12) RECOMMEND THERAPEUTIC CERVICAL EPIDURAL STEROID INJECTION, levels C7-T1 The patient reports overall 50% improvement in function and decrease in pain for greater than one month from previous diagnostic CAROL. The patient also reports improvement in tolerance to activities which generally cause pain. Based on the results of previous diagnostic CAROL, a therapeutic CAROL is recommended. Expectation from a successful therapeutic epidural steroid injection is at least 50-70% relief of pain from baseline and evidence of improved function for at least six to eight weeks after delivery. The goal of epidural steroid injections is to reduce pain and inflammation, restoring range of motion and, thereby, facilitating progress in more active treatment programs, and avoiding surgery. The procedure and risks were discussed with the patient including but not limited to infection, bleeding, neurological complications, side effects from medications, no change in pain, worsening of pain, or even . We also discussed conservative options, surgical options, and medical management with patient as well. The patient indicates understanding and wishes to proceed with the recommended treatment approach. The patient was given written information about the procedure and all questions were answered. 10/07/2024 Radiculopathy, cervical region (ICD-10 - M54.12) 02/12/2025 DDD (degenerative disc disease), cervical (ICD-10 - M50.30) 11/02/2024 Radiculopathy, cervical region (ICD-10 - M54.12) 04/16/2025 Primary generalized (osteo)arthritis (ICD-10 - M15.0) 10/07/2024 Myofascial pain syndrome (ICD-10 - M79.18) 11/04/2024 Myalgia, other site (ICD-10 - M79.18) 06/22/2025 DDD (degenerative disc disease), cervical (ICD-10 - M50.30) 02/12/2025 Primary generalized (osteo)arthritis (ICD-10 - M15.0) 02/12/2025 alf (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 of opiate analgesic (ICD-10 - Z79.891) 06/22/2025 Primary generalized (osteo)arthritis (ICD-10 - M15.0) 04/16/2025 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 Saran Whitley, personally performed the services described in this documentation , as scribed by Brannon Gonzalez, and it is both accurate and complete. 11/04/2024 Other Brannon Whitley, am scribing for Dr. Saran Atkins. I, Dr. Saran Atkins, personally performed the services described in this documentation , as scribed by Brannon Gonzalez, and it is both accurate and complete. Plan Of Treatment Next Appt Details Provider Name:Saran Atkins, 08/19/2025 04:00:00 PM, [address] [place] [address], [id number], Insurance Providers Payer Name Payer Address Payer Phone Subscriber Number Group Number Insured Name Patient Relationship to Insured Coverage Start Date Coverage End Date [employer] [address] [place] [phone] [id number] Rayo Gayle Self - patient is the insured Medical (General) History Surgical History Surgery Date(Month/Year) appendectomy Since 2009 cholecystectomy Since 2018
--- OUTSIDE RECORDS SUMMARY | 2025-08-02 14:22 | XMS_ITS | Encounter Summary ---
Author Organization [facility] Address [address] [place] [address] Care Team Providers Care Superintendent Plant Protection Name Role Phone Ana Avila Primary Care Provider [phone] Encounter Details Date Type Department Care Team (Late Contact Info) Description 06/01/2025 Results Follow-Up [facility] [place] [address] [place] [address] [facility] [address] [place] [address] ECHO COMPLETE - CONTRAST AND STRAIN IF INDICATED Social History Tobacco Use Types Packs/Day Years Used Date Smoking Tobacco: Former Cigarettes Q uit: 2002 Smokeless Tobacco: Never Sex and Gender Information Value Date Recorded Sex Assigned at Not on file 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 Gender Identity Not on file Sexual Orientation Not on file documented as of this encounter Plan of Treatment Upcoming Encounters Date Type Department Care Team (Late st Contact Info) Description 08/18/2025 3:00 PM ANIMAL MAINTENANCE SUPERVISOR Office Visit [facility] G[facility]- [place] [address] [facility] [address] [place] [address] Dayron Ceballos MD [address] [facility] [address] [place] [address] documented as of this encounter Visit Diagnoses Not on filedocumented in this encounter Care Teams Superintendent Plant Protection Relationship Specialty Start Date End Date Ana Avila DO [address] [place] [id number] PCP - General Family Practice 10/09/24 documented as of this encounter
--- NOTE | 2025-08-02 14:30 | W.ED.CHESTPA ---
HPI - Chest Pain General: Chief Complaint: Chest Pain Stated Complaint: chest pain, sob, cough, tingling/numbness in L arm Time Seen by Provider: 08/02/25 14:28 History of Present Illness: 45-year-old male presents to the emergency room with complaints of aches all over. No fever sweats or chills he just generally does not feel well is complaining of shortness of breath. His pain is all reproducible even with light touch on his chest when I rest does go up on his chest or touch his back he states he has severe pain. No fevers sweats chills. No dysuria urgency or frequency no abdominal pain no vomiting or diarrhea. Patient says he has a nonspecific inflammatory arthritis. He has no known history of heart disease no previous strokes has no neurologic deficits at this time. Associated symptoms: Deny abdominal pain, dyspnea or fever(s) Related Data Home Medications ?Medication ?Instructions ?Recorded ?Confirmed cyclobenzaprine 10 mg tablet 10 mg PO DAILY 03/08/25 03/18/25 ibuprofen 200 mg tablet (Advil) 800 mg PO Q6H PRN Fever Or Pain 03/08/25 03/18/25 oxycodone 10 mg tablet 10 mg PO Q6H PRN Pain 03/08/25 03/18/25 Previous Rx's ?Medication ?Instructions ?Recorded albuterol sulfate 90 mcg/actuation 2 puff inhalation Q6H PRN 03/03/25 aerosol inhaler shortness of breath or wheezing #8.5 grams prednisone 20 mg tablet 20 mg PO TID #15 tabs 08/02/25 Allergies Allergy/AdvReac Type Severity Reaction Status Date / Time No Known Allergies Allergy Verified 08/02/25 14:22 Review of Systems Const: Denies: fever(s) or chills Card: Reports: chest pain Resp: Denies: dyspnea GI: Denies: abdominal pain : Denies: dysuria, urinary frequency or urinary urgency Musc: Denies: neck pain or back pain Skin/Breast: Denies: rash PFSH ED PFSH: Medical History Cough Surgical History History of appendectomy Family History Father Diabetes Cancer colon and liver Mother Congenital heart disease Social History Smoking and tobacco/nicotine status: never used tobacco/nicotine Physical Exam Const: GENERAL APPEARANCE: cooperative ORIENTATION/CONSCIOUSNESS: Yes awake, Yes oriented to person, Yes oriented to place and Yes oriented to time HENMT: COMMON NORMALS: normocephalic, atraumatic and hearing grossly normal bilaterally HEAD & SCALP: normocephalic and atraumatic Resp: COMMON NORMALS: normal respiratory effort, No retractions, No use of accessory muscles and clear to auscultation bilaterally AUSCULTATION: clear to auscultation bilaterally Cardio: COMMON NORMALS: regular rate, regular rhythm and No murmurs present (Cardio) RATE: regular rate RHYTHM: regular rhythm GI: COMMON NORMALS: Soft to palpation and No hepatosplenomegaly present AUSCULTATION: Yes normoactive bowel sounds PALPATION: Yes Soft to palpation, No Tenderness to palpation present (GI), No Guarding due to palpation present (GI) and Yes No hepatosplenomegaly present Extremity: COMMON NORMALS: normal to inspection, capillary refill normal, no clubbing, cyanosis or edema, no calf tenderness and no pedal edema Neuro: SENSORIUM/ORIENTATION: Yes oriented to person, Yes oriented to place and Yes oriented to time Skin: COMMON NORMALS: no rashes or lesions noted GENERAL SKIN EXAM: no rashes or lesions noted Course Vital Signs: Vital signs: Vital Signs Temperature 98.2 F 08/02/25 14:12 Pulse Rate 90 08/02/25 16:32 Respiratory Rate 17 08/02/25 15:22 Blood Pressure 120/74 08/02/25 16:32 Pulse Oximetry 97 08/02/25 16:32 Oxygen Delivery Me thod Room Air 08/02/25 15:22 MDM - Chest Pain Medical Decision Making Pain reproducible with palpation on the chest wall. Chest x-ray shows hyperinflation but no acute infiltrates or increased vascular congestion. Will discharge home discussed findings with patient troponins are also negative. Medical Records I reviewed the patient's medical records. Lab Data I reviewed the patient's lab results. 08/02/25 15:15 08/02/25 15:15 Radiology Impressions Chest X-Ray 08/02/25 14:10 Impression: Hyperinflation. Laboratory Results WBC 7.03 10^3/uL (3.29-11.43) 08/02/25 15:15 RBC 4.55 10^6/uL (3.85-5.65) 08/02/25 15:15 Hgb 14.70 g/dL (11.27-16.99) 08/02/25 15:15 Hct 40.9 % (37-53) 08/02/25 15:15 MCV 89.9 fl (82-101) 08/02/25 15:15 MCH 32.3 pg (27-33) 08/02/25 15:15 MCHC 35.9 g/dL (30-55) 08/02/25 15:15 RDW 11.5 % (12.1-15.1) L 08/02/25 15:15 Plt Count 227 10^3/cmm (157-399) 08/02/25 15:15 MPV 8.8 fL (7.4-10.4) 08/02/25 15:15 Neut % (Auto) 79.2 % 08/02/25 15:15 Lymph % (Auto) 15.1 % 08/02/25 15:15 Alpine % (Auto) 5.3 % 08/02/25 15:15 Eos % (Auto) 0.0 % 08/02/25 15:15 Baso % (Auto) 0.3 % 08/02/25 15:15 Neut # (Auto) 5.57 10^3/uL (1.8-7.7) 08/02/25 15:15 Lymph # (Auto) 1.1 10^3/uL (0.8-4.8) 08/02/25 15:15 Alpine # (Auto) 0.4 10^3/uL (0.2-0.9) 08/02/25 15:15 Eos # (Auto) 0.0 10^3/uL (0.0-0.8) 08/02/25 15:15 Baso # (Auto) 0.0 10^3/uL (0.0-0.1) 08/02/25 15:15 Nucleated RBC % (auto) 0 % 08/02/25 15:15 Nucleated RBCs # 0.0 /100WBC 08/02/25 15:15 Sodium 137 mmol/L (136-145) 08/02/25 15:15 Potassium 4.3 mmol/L (3.5-5.1) 08/02/25 15:15 Chloride 101 mmol/L (98-107) 08/02/25 15:15 Carbon Dioxide 23 mmol/L (22-29) 08/02/25 15:15 Anion Gap 17.3 (5-19) 08/02/25 15:15 BUN 5 mg/dL (6-20) L 08/02/25 15:15 Creatinine 0.7 mg/dL (0.7-1.2) 08/02/25 15:15 GFR Calculation 122.5 mL/min (90-130) 08/02/25 15:15 Glucose 96 mg/dL (65-115) 08/02/25 15:15 Calculated Osmolality 281 mOsm/kg (285-295) L 08/02/25 15:15 Calcium 9.5 mg/dL (8.5-10.5) 08/02/25 15:15 Total Bilirubin 0.6 mg/dL (0.15-1.2) 08/02/25 15:15 AST 15 U/L (0-40) 08/02/25 15:15 ALT 37 U/L (0-41) 08/02/25 15:15 Alkaline Phosphatase 66 U/L (40-130) 08/02/25 15:15 Creatine Kinase 60 U/L (39-308) 08/02/25 15:15 Troponin T Baseline < 6 ng/L (0-15) 08/02/25 15:15 C-Reactive Protein 3.0 mg/L (0.0-4.9) 08/02/25 15:15 Total Protein 6.9 g/dL (6.6-8.7) 08/02/25 15:15 Albumin 4.9 g/dL (3.5-5.2) 08/02/25 15:15 Globulin 2.0 g/dL (1.3-4.6) 08/02/25 15:15 All radiology interpretation(s) finalized by discharge ED provider radiology interpretation(s): Hyperinflation no infiltrates on chest x-ray EKG Data EKG 1: I personally reviewed and interpreted this EKG as follows: Interpretation: EKG 08/02/2025 1417. Sinus rhythm nonspecific ST changes no acute ST elevation rate of 92. 155 QTc 429. Compared to EKG from 03/07/2025 sinus tachycardia no longer present otherwise no acute changes. Discharge Plan Discharge Patient Disposition: Home Clinical Impression: Inflammatory arthritis, Chest wall pain Condition: Stable Prescriptions: New prednisone 20 mg tablet 20 mg PO TID Qty: 15 0RF Rx Instructions: 1 p.o. 3 times daily x3 days, 1 p.o. twice daily x2 days, 1 p.o. daily x2 days No Action albuterol sulfate 90 mcg/actuation HFA aerosol inhaler 2 puff inhalation Q6H PRN (Reason: shortness of breath or wheezing) Qty: 8.5 0RF cyclobenzaprine 10 mg tablet 10 mg PO DAILY ibuprofen [Advil] 200 mg Tablet 800 mg PO Q6H PRN (Reason: Fever Or Pain) oxycodone 10 mg tablet 10 mg PO Q6H PRN (Reason: Pain) Discharge Orders: Discharge ED (Routine); Ordered 08/02/25 Ordered By: Roni Aguayo Referrals: Ori Soto FNP [Primary Care Provider] Discharge Diet: Usual diet Discharge Activity: Increase activity as tolerated Patient Instructions: Opioid Safety, Pain Management, Patient Portal & Afsaneh Instructions, Chest Pain - Chest Wall Activity Restrictions/Additional Instructions: Thank you for choosing [facility] for your healthcare needs today. It is very important that you follow up as instructed or that you return to the Emergency Department should you have concerns or if your condition changes or worsens in any way. Emergency department visits are focused on emergent conditions, in some cases you may require further evaluation on an outpatient basis. You were seen in the emergency room with complaints of myalgias. Your white count is normal your CPK and CRP are also normal chest x-ray and EKG cardiac enzymes are all negative. Chest pain is more musculoskeletal in nature will put you on a course of prednisone recommend you follow-up with your primary care doctor. (Please note that included in your discharge packet is information concerning opioid safety and pain management. This information is given to all patients were discharged from the ER regardless of their discharge diagnosis or the medicines they usually take or are prescribed.) Stand Alone Forms: Work/School Release Print Language: Chilean Coding Level of Care Code ED Personnel Administrator for Chg Fwd Heart Score HEART Score Components History: Slightly Suspicous EKG: Normal Age: Less than 45 yrs Risk Factors: No Risk Factors Known Troponin: Baseline Trop <16 ng/L HEART Score RESULT HEART Score: 0
[2025-08-02 14:52] VITALS: BP 119/71; PULSE 92; RESP 18; O2SAT 96
[2025-08-02 15:22] VITALS: BP 105/66; PULSE 92; RESP 17; O2SAT 96
[2025-08-02 15:48] LABS: Hematocrit 40.9 % (37-53); Hemoglobin 14.70 g/dL (11.27-16.99); Mean Corpuscular HGB Conc 35.9 g/dL (30-55); Mean Corpuscular Hemoglobin 32.3 pg (27-33); Mean Corpuscular Volume 89.9 fl (82-101); Nucleated Red Blood Cells % 0 %; Platelet Count 227 10^3/cmm (157-399); Red Blood Count 4.55 10^6/uL (3.85-5.65); White Blood Count 7.03 10^3/uL (3.29-11.43)
[2025-08-02 16:07] LABS: Troponin(5th) Baseline < 6 ng/L (0-15)
[2025-08-02 16:08] LABS: Alanine Aminotransferase 37 U/L (0-41); Albumin Level 4.9 g/dL (3.5-5.2); Alkaline Phosphatase 66 U/L (40-130); Aspartate Amino Transferase 15 U/L (0-40); Blood Urea Nitrogen 5 mg/dL (6-20); Calcium 9.5 mg/dL (8.5-10.5); Carbon Dioxide 23 mmol/L (22-29); Chloride 101 mmol/L (98-107); Globulin 2.0 g/dL (1.3-4.6); Glucose 96 mg/dL (65-115); Osmolality Calculated 281 mOsm/kg (285-295); Sodium 137 mmol/L (136-145); Total Protein 6.9 g/dL (6.6-8.7)
--- NOTE | 2025-08-02 16:11 | ECG_ITS ---
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 Measurements Intervals [place] Rate: 79 P: 65 FL: 160 QRS: 65 QRSD: 98 T: 71 QT: 370 QTc: 425 Interpretive Statements SINUS RHYTHM NONSPECIFIC T-WAVE ABNORMALITY Compared to ECG 08/02/2025 14:17:02 No significant changes Electronically Signed On 08-03-2025 22:24:53 CONFERENCE ORGANIZER by Desire Perez M.D. [email or web address]
[2025-08-02 16:16] LABS: Anion Gap 17.3 (5-19); Potassium 4.3 mmol/L (3.5-5.1)
[2025-08-02 16:32] VITALS: BP 120/74; PULSE 90; O2SAT 97
== END 2025-08-02 16:52 | disposition home or self-care (01) ==
PROVIDERS: Physician Assistant; Emergency Provider Family Medicine; PCP Nurse Practitioner Family
DX: M13.80 Other specified arthritis, unspecified site (principal); R07.89 Other chest pain
CPT/HCPCS: 71045; 80053; 82550; 84484; 85025; 86140; 93005; 99285